=== PATIENT | female | born 1945 | race Caucasian/White ===

== ENCOUNTER 2016-10-06 08:51 | Emergency (ER) | payer OTHER ==
[~2016-10-06] VITALS: Ht 172.7 cm; Wt 89.9 kg
[~2016-10-06 08:51] MED LIST: ASPI-232 PO; BROM0.0911 TOP; CHOL1TAB42 PO; COLE1TAB PO; GATI0.5S OPL; GLC500 PO; LEVO50TA PO; METO25TA3 PO; MULT-506 PO; PRED1SUS3 OPL; XNX25 PO
[2016-10-06 08:55] VITALS: TEMP 37.4; Ht 172.7 cm; Wt 89.9 kg
[2016-10-06] MEDS ORDERED: ONDANSETRON INJ 2 MG/ML 2 ML VIAL IV STA (09:24)
[2016-10-06] MEDS ORDERED: KETOROLAC TROMETHAMINE 30 MG/ML VIAL IV STA (09:24)
[2016-10-06] MEDS ORDERED: SODIUM CHLORIDE 0.9% 1000ML 1,000 ML IV STA (09:24)
--- NOTE | 2016-10-06 09:32 | EMERGENCY ROOM VISIT NOTE ---
History Report prepared by Lito: [place] nAthony Under the Supervision of: Dr. Diaz Nguyen M.D. First contact with patient: 09:01 Chief Complaint: FLU LIKE SX Stated Complaint: FLU SYMPTOMS,BODYACHES,CHILLS History of Present Illness The patient is a 71 year old female who presents to the Emergency Room with complaints of flu-like symptoms that began yesterday. The patient rates her pain a 7/10 in severity. At this time, she suddenly began to feel chills, body aches, and joint pain. This worsened throughout the day. She is now also experiencing a cough, sore throat, and nausea. She denies any abdominal pain. She has a past medical history of a hysterectomy and a cholecystectomy. Source of History: patient Onset: yesterday Position: other (global) Symptom Intensity: 7/10 Quality: other (Flu-like symptoms) Timing: worsening Associated Symptoms: + chills, + cough, + nausea, + sorethroat, No abdominal pain Note: She is feeling joint pain and body aches. Review of Systems See HPI for pertinent positives & negatives. A total of 10 systems reviewed and were otherwise negative. Past Medical & Surgical Medical Problems: (1) Benign hypertension (2) Cholecystectomy (3) Irritable colon (4) Ulcerative colitis Family History Omitted secondary to age. Social History Smoking Status: Never Smoker Smokeless Tobacco Use: No Drug Use: none Marital Status: Housing Status: lives with family Occupation Status: retired Current/Historical Medications Scheduled Aspirin (Aspir-81), 81 MG PO QAM Cholecalciferol (Vitamin D), 5,000 INTUNIT PO QAM Colestipol Hcl (Colestid), 1 GM PO 2-3/day Vikmfnow-Fltnctgvqlim-Qulwqrnd (Artificial Tears), 1 DROP OPB UD Levothyroxine Sodium (Synthroid), 50 MCG PO QAM Metformin HCl (Metformin HCl), 500 MG PO BID Metoprolol Succ (Toprol Xl) (Toprol-Xl), 25 MG PO HS Multivitamin (Multivitamin), 1 TAB PO QAM Scheduled PRN Alprazolam (Alprazolam), 0.25 MG PO TID PRN for Anxiety Allergies Coded Allergies: No Known Allergies (Verified , 10/06/16) Physical Exam Vital Signs Date Time Temp Pulse Resp B/P Pulse Ox O2 Delivery O2 Flow Rate FiO2 10/06/16 11:11 74 16 131/76 94 10/06/16 10:26 75 10/06/16 10:24 75 23 143/76 94 10/06/16 09:50 96 Room Air 10/06/16 08:55 37.4 101 18 138/67 95 Room Air Physical Exam GENERAL: Patient is a healthy-appearing well-nourished HEAD: Normocephalic atraumatic EYES: Ocular movements intact pupils equal and react to light OROPHARYNX mucous membranes are moist no exudates present no erythema or edema present NECK: Supple no nuchal rigidity CHEST: Good equal expansion LUNGS: Clear and equal to auscultation CARDIAC: Normal S1 and S2, 2/6 systolic murmur. ABDOMEN: Soft nontender no guarding BACK: No CVA tenderness EXTREMITIES: No pain upon palpation normal muscle strength in all groups no clubbing cyanosis or edema NEURO: Patient is following commands is answering questions appropriately. Alert and oriented x3 Cranial Nerves 2-12 grossly intact Medical Decision & Procedures ER Provider Diagnostic Interpretation: Radiology results as stated below per my review and radiologist interpretation: CHEST ONE VIEW PORTABLE CLINICAL HISTORY: Cough COMPARISON STUDY: 09/14/2011 FINDINGS: The cardiac and mediastinal contours are normal. There is no evidence of focal pulmonary consolidation. There is no evidence of failure. No pleural effusions are visualized.[ IMPRESSION: No active disease in the chest. Electronically signed by: Jerry Gillesipe M.D. 10/06/2016 9:54 AM Dictated Date/Time: 10/06/2016 9:54 AM Laboratory Results 10/06/16 09:50 Red Blood Count 4.33, Mean Corpuscular Volume 86.8, Mean Corpuscular Hemoglobin 30.9, Mean Corpuscular Hemoglobin Concent 35.6, Mean Platelet Volume 10.7, Neutrophils (%) (Auto) 77.2, Lymphocytes (%) (Auto) 14.0, Monocytes (%) (Auto) 7.9, Eosinophils (%) (Auto) 0.7, Basophils (%) (Auto) 0.2, Neutrophils # (Auto) 3.54, Lymphocytes # (Auto) 0.64, Monocytes # (Auto) 0.36, Eosinophils # (Auto) 0.03, Basophils # (Auto) 0.01 10/06/16 09:50 Test 10/06/16 09:07 10/06/16 09:50 10/06/16 10:15 Influenza Type A (RT-PCR) Neg for Influ A (NEG) Influenza Type A Antigen Neg for Influ A (NEG) Influenza Type B Antigen Neg for Influ B (NEG) Influenza Type B (RT-PCR) Neg for Influ B (NEG) White Blood Count 4.58 K/uL (4.8-10.8) Red Blood Count 4.33 M/uL (4.2-5.4) Hemoglobin 13.4 g/dL (12.0-16.0) Hematocrit 37.6 % (37-47) Mean Corpuscular Volume 86.8 fL (80-100) Mean Corpuscular Hemoglobin 30.9 pg (25-34) Mean Corpuscular Hemoglobin Concent 35.6 g/dl (32-36) Platelet Count 119 K/uL (130-400) Mean Platelet Volume 10.7 fL (7.4-10.4) Neutrophils (%) (Auto) 77.2 % Lymphocytes (%) (Auto) 14.0 % Monocytes (%) (Auto) 7.9 % Eosinophils (%) (Auto) 0.7 % Basophils (%) (Auto) 0.2 % Neutrophils # (Auto) 3.54 K/uL (1.4-6.5) Lymphocytes # (Auto) 0.64 K/uL (1.2-3.4) Monocytes # (Auto) 0.36 K/uL (0.11-0.59) Eosinophils # (Auto) 0.03 K/uL (0-0.5) Basophils # (Auto) 0.01 K/uL (0-0.2) RDW Standard Deviation 42.5 fL (36.4-46.3) RDW Coefficient of Variation 13.2 % (11.5-14.5) Immature Granulocyte % (Auto) 0.0 % Immature Granulocyte # (Auto) 0.00 K/uL (0.00-0.02) Anion Gap 8.0 mmol/L (3-11) Est Creatinine Clear Calc Drug Dose 73.8 ml/min Estimated GFR () 83.4 Estimated GFR (Non- 72.0 BUN/Creatinine Ratio 12.9 (10-20) Calcium Level 8.7 mg/dl (8.5-10.1) Total Bilirubin 1.2 mg/dl (0.2-1) Direct Bilirubin 0.2 mg/dl (0-0.2) Aspartate Amino Transf (AST/SGOT) 17 U/L (15-37) Alanine Aminotransferase (ALT/SGPT) 26 U/L (12-78) Alkaline Phosphatase 88 U/L (45-117) Total Protein 6.8 gm/dl (6.4-8.2) Albumin 3.7 gm/dl (3.4-5.0) Urine Color DK YELLOW Urine Appearance CLEAR (CLEAR) Urine pH 6.5 (4.5-7.5) Urine Specific [place] 1.022 (1.000-1.030) Urine Protein TRACE (NEG) Urine Glucose (UA) NEG (NEG) Urine Ketones TRACE (NEG) Urine Occult Blood NEG (NEG) Urine Nitrite NEG (NEG) Urine Bilirubin NEG (NEG) Urine Urobilinogen NEG (NEG) Urine Leukocyte Esterase SMALL (NEG) Urine WBC (Auto) 1-5 /hpf (0-5) Urine RBC (Auto) 0-4 /hpf (0-4) Urine Hyaline Casts (Auto) 1-5 /lpf (0-5) Urine Epithelial Cells (Auto) >30 /lpf (0-5) Urine Bacteria (Auto) NEG (NEG) Labs reviewed by ED physician. Medications Administered Medications (Trade) Dose Ordered Sig/Seven Route Start Time Stop Time Status Last Admin Dose Admin Sodium Chloride (Nss 1000ml) 1,000 ml @ 999 mls/hr Q1H1M STAT IV 10/06/16 09:24 10/06/16 10:24 DC 10/06/16 10:05 999 MLS/HR Ketorolac Tromethamine (Toradol Inj) 30 mg NOW STAT IV 10/06/16 09:24 10/06/16 09:27 DC 10/06/16 10:05 30 MG Ondansetron HCl (Zofran Inj) 4 mg NOW STAT IV 10/06/16 09:24 10/06/16 09:27 DC 10/06/16 10:05 4 MG Acetaminophen (Tylenol Tab) 1,000 mg NOW STAT PO 10/06/16 10:13 10/06/16 10:14 DC 10/06/16 10:37 1,000 MG Albuterol (Ventolin Hfa Inhaler) 2 puffs NOW STAT INH 10/06/16 10:13 10/06/16 10:14 DC 10/06/16 10:37 2 PUFFS Albuterol Sulfate (Ventolin 0.5% 2.5MG/0.5ML Neb) 2.5 mg NOW STAT INH 10/06/16 10:13 10/06/16 10:14 DC 10/06/16 10:37 2.5 MG ED Course 09: Past medical records reviewed. The patient was evaluated in room B2. A complete history and physical examination was performed. 09: Ordered Zofran Inj 4 mg IV, Toradol Inj 30 mg IV, Sodium Chloride 1000 ml @ 999 mls/hr IV 1013: Ordered Albuterol Sulfate 2.5 mg INH, Albuterol 2 puffs INH, Tylenol Tab 1000 mg PO 1104: Upon reexamination the patient is resting. I discussed results and treatment plan with the patient. She verbalizes agreement and understanding. The patient is ready for discharge. Medical Decision Differential diagnosis: Etiologies such as viral syndrome, otitis, pharyngitis, pneumonia, influenza, meningitis, urinary tract infection, sepsis, bacteremia, as well as others were entertained. This is a 71-year-old female who presents emergency department complaining of general URI like symptoms. The patient was given a breathing treatment in the emergency department. Her chest x-ray does not show any evidence of pneumonia congestion. She was given IV Toradol as well as a normal saline bolus. Repeat examination revealed much improvement patient's symptoms. The patient's flu swab is negative however I feel she is well enough to be discharged home for follow-up with her primary care physician. I recommended increasing her fluids over the next 48 hours as well as taking ibuprofen and Tylenol. Patient was in agreement with the treatment plan. Impression Primary Impression: Influenza-like symptoms Scribe Attestation The scribe's documentation has been prepared under my direction and personally reviewed by me in its entirety. I confirm that the note above accurately reflects all work, treatment, procedures, and medical decision making performed by me. Departure Information Dispostion Home / Self-Care Referrals Danisha Hirsch M.D. (PCP) Forms HOME CARE DOCUMENTATION FORM, IMPORTANT VISIT INFORMATION, School Instructions, Work Instructions Patient Instructions ED Fever Control, ED Fever Unconf Cause, My [facility] Additional Instructions Use inhaler twice every 6 hours Take 600 mg Ibuprofen every 6 hours Take 1000 mg Tylenol every 6 hours Increase fluids You have been examined and treated today on an emergency basis only. This is not a substitute for, or an effort to provide, complete comprehensive medical care. It is impossible to recognize and treat all injuries or illnesses in a single emergency department visit. It is therefore important that you follow up closely with Dr Hirsch. Call as soon as possible for an appointment. Thank you for your time and consideration. I look forward to speaking with you again soon. Please don't hesitate to call us if you have any questions.
[2016-10-06] MEDS ORDERED: GLYCDRO6 OPB (09:33)
[2016-10-06] MEDS ORDERED: XNX25X PO (09:33)
[2016-10-06 09:50] VITALS: O2SAT 96
--- NOTE | 2016-10-06 09:55 | DIAGNOSTIC IMAGING REPORT ---
CHEST ONE VIEW PORTABLE CLINICAL HISTORY: Cough COMPARISON STUDY: 09/14/2011 FINDINGS: The cardiac and mediastinal contours are normal. There is no evidence of focal pulmonary consolidation. There is no evidence of failure. No pleural effusions are visualized.[ IMPRESSION: No active disease in the chest. Electronically signed by: Jerry Gillespie M.D. 10/06/2016 9:54 AM Dictated Date/Time: 10/06/2016 9:54 AM
[2016-10-06 10:12] LABS: BASO % 0.2 %; BASO ABS # 0.01 K/uL (0-0.2); COMPLETE YES; EOS % 0.7 %; HEMATOCRIT 37.6 % (37-47); LYMPH ABS # 0.64 K/uL (1.2-3.4); MEAN CELL VOLUME 86.8 fL (80-100); MEAN CORPUSCULAR HEMOGLOBIN 30.9 pg (25-34); MEAN CORPUSCULAR HGB CONC 35.6 g/dl (32-36); MEAN PLATELET VOLUME 10.7 fL (7.4-10.4); MONO % 7.9 %; NEUT % 77.2 %; PLATELET COUNT 119 K/uL (130-400); RED BLOOD COUNT 4.33 M/uL (4.2-5.4); WHITE BLOOD COUNT 4.58 K/uL (4.8-10.8)
[2016-10-06] MEDS ORDERED: ALBUTEROL HFA 8 GM INHALER INH STA (10:13)
[2016-10-06] MEDS ORDERED: ALBUTEROL 0.5% NEB SOLN 2.5 MG/0.5 ML VIAL INH STA (10:13)
[2016-10-06] MEDS ORDERED: ACETAMINOPHEN 500 MG TAB PO STA (10:13)
[2016-10-06 10:34] LABS: BUN/CREATININE RATIO 12.9 (10-20); CALCIUM 8.7 mg/dl (8.5-10.1); CREATININE 0.82 mg/dl (0.60-1.20); POTASSIUM 3.8 mmol/L (3.5-5.1)
[2016-10-06 10:58] LABS: URINE APPEARANCE CLEAR (CLEAR); URINE BILIRUBIN NEG (NEG); URINE COLOR DK YELLOW; URINE EPITHELIAL CELL AUTO >30 /lpf (0-5); URINE NITRITE NEG (NEG); URINE PH 6.5 (4.5-7.5); URINE SPECIFIC GRAVITY 1.022 (1.000-1.030); UROBILINOGEN NEG (NEG)
[2016-10-06 11:03] LABS: MANUAL MICROSCOPIC REQUIRED? NO; REVIEW REQ? NO
[2016-10-06 11:11] VITALS: BP 131/76; PULSE 74; O2SAT 94
[2016-10-06 12:03] LABS: INFLUENZA A PCR Neg for Influ A (NEG); INFLUENZA B PCR Neg for Influ B (NEG)
== END 2016-10-06 11:14 | disposition home or self-care (01) ==
LOC: C.EDB 08:53
DX: J11.1 Influenza due to unidentified influenza virus with other respiratory manifestations (principal); I10 Essential (primary) hypertension; K58.9 Irritable bowel syndrome, unspecified; Z86.19 Personal history of other infectious and parasitic diseases; Z90.49 Acquired absence of other specified parts of digestive tract; Z79.82 Long term (current) use of aspirin; Z79.84 Long term (current) use of oral hypoglycemic drugs; Z79.899 Other long term (current) drug therapy

== ENCOUNTER → 2017-01-01 | Outpatient (CLI) | payer OTHER ==
[~2017-01-01] MED LIST changes: -BROM0.0911 TOP; -GATI0.5S OPL; +GLYCDRO6 OPB; +OPTIRAY 320 IV PRN; -PRED1SUS3 OPL; -XNX25 PO; +XNX25X PO
--- NOTE | 2017-01-01 11:16 | DIAGNOSTIC IMAGING REPORT ---
CT SCAN OF THE ABDOMEN AND PELVIS COMBO RENAL MASS PROTOCOL CLINICAL HISTORY: Hematuria. COMPARISON STUDY: No priors. TECHNIQUE: Performed following the IV administration of 119 cc of Optiray 320, CT scan of the abdomen and pelvis is performed from the lung bases to the proximal femora using the renal mass protocol. Images are reviewed in the axial, sagittal, and coronal planes. IV contrast was administered without complication. Automated dose control exposure was utilized. A dose lowering technique was utilized adhering to the principles of ALARA. CT DOSE: 1893.14 mGy.cm FINDINGS: Lung bases: The heart is mildly enlarged and without pericardial effusion. There are coronary artery calcifications. Emphysematous change is seen at the lung bases. No airspace consolidation or pleural effusion is identified. There is a tiny hiatal hernia. Liver: The contrast-enhanced liver is enlarged, measuring 20.5 cm in length. The liver demonstrates diffusely diminished attenuation consistent with hepatic steatosis. There is no intrahepatic biliary ductal dilatation. The hepatic veins and portal veins are patent. There are 2 hepatic cysts which measure up to 2.3 cm. Gallbladder: Surgically absent noting clips in the gallbladder fossa. Spleen: The spleen is markedly enlarged, measuring 16.7 cm in length. Pancreas: Unremarkable. Adrenal glands: Unremarkable. Kidneys: The contrast enhanced kidneys demonstrate mild cortical atrophy and are without hydronephrosis. There is a 1.8 cm calculus identified in the right renal pelvis. There is mild associated urothelial thickening. Minimal stranding is seen in the renal sinus fat. No left renal calculi are identified. The kidneys enhance symmetrically. There is a 5.4 x 3.4 x 3.4 cm fat attenuation lesion arising from the medial interpolar left kidney. This is best seen on axial image #227 and is typical in appearance for an angiomyolipoma. There is an additional 1.8 cm lesion in the lower pole of the right kidney seen on image #224 and a 7 mm lesion in the upper pole of the left kidney seen on image #128. These also contain macroscopic fat and are most typical in appearance for angiomyolipomas. There are scattered enhancing soft tissue elements seen within the 1.8 cm right lower lobe lesion. No additional enhancing renal mass is identified. A 1.7 cm cyst is identified in the upper pole of the left kidney. Additional subcentimeter cortical hypodensities also likely represent cysts but are too small for definitive characterization. There is no evidence of urothelial lesion within the renal pelvis bilaterally or along the course of ureters. The mid to distal right ureter is not well opacified by excreted contrast. Abdominal vasculature: The abdominal aorta is normal in course and caliber noting moderate to advanced atherosclerotic calcification. Bowel: The small bowel and colon are normal in course and caliber. There is mild colonic diverticulosis without CT evidence of acute diverticulitis. The appendix is well-visualized and normal. Peritoneum: There is no intraperitoneal free air or abdominal ascites. There is a fat-containing umbilical hernia. Lymphadenopathy: None. Pelvic viscera: There is a 1.5 cm intraluminal filling defects seen within the posterior left wall of the bladder. This is best seen on delayed image #440. The uterus is surgically absent. No adnexal lesion is seen. Skeletal structures: Skeletal structures are osteopenic. Mild lumbosacral spondylosis is observed. No lytic or blastic lesions are seen. IMPRESSION: 1. There is a 1.8 cm calculus identified in the right renal pelvis. There is mild associated urothelial thickening and mild stranding in the surrounding parapelvic fat. This is likely related to inflammation from the large calculus. Superimposed infection would be impossible to exclude and clinical correlation will be required. 2. No additional renal calculi are identified. 3. There is no enhancing renal cortical mass identified typical in appearance for renal cell carcinoma. No evidence of urothelial lesion is seen within the renal pelvis bilaterally or along the course of the ureters. 4. There is a 5.4 cm lesion arising from the medial interpolar right kidney. This is largely composed of macroscopic fat and is typical in appearance for an angiomyolipoma. 5. There are at least 2 additional smaller lesions identified in the left upper and right lower poles which contain macroscopic fat. These are also typical in appearance for age of angiomyolipoma. Scattered soft tissue elements are seen within the right lower pole lesion. Follow-up with urology is recommended, and a precautionary 6-12 month follow-up CT scan is recommended for reassessment. 6. There is a 1.5 cm intraluminal filling defect seen within the posterior left aspect of the bladder. This could represent intraluminal debris/clot versus urothelial neoplasm. Cystoscopy is recommended for further assessment. 7. Hepatomegaly and severe hepatic steatosis. 8. Splenomegaly. 9. Mild colonic diverticulosis without CT evidence of acute diverticulitis. 10. Cardiomegaly and emphysema. 11. Additional findings as above. Electronically signed by: Surinder So M.D. 01/01/2017 11:14 AM Dictated Date/Time: 01/01/2017 10:49 AM
== END | disposition home or self-care (01) ==
LOC: C.CTS 10:01
PROVIDERS: ATTEND Internal Medicine
DX: R31.9 Hematuria, unspecified (principal); I51.7 Cardiomegaly; N20.0 Calculus of kidney

== ENCOUNTER → 2017-09-16 | Outpatient (CLI) | payer OTHER ==
[~2017-09-16] MED LIST changes: -OPTIRAY 320 IV PRN
--- NOTE | 2017-09-16 17:25 | DIAGNOSTIC IMAGING REPORT ---
MRI LUMBAR SPINE W/O CONTRAST CLINICAL HISTORY: Back pain with right leg radiculopathy. TECHNIQUE: Sagittal and axial T1, T2 and STIR images were obtained. COMPARISON STUDY: No previous studies for comparison. OBSERVATIONS: The vertebral bodies and posterior elements appear intact. There is no abnormal bony signal present to suggest a marrow replacement process. L1-2: There is a circumferential disc bulge. There is mild spinal stenosis. There is mild bilateral foraminal narrowing. L2-3: There is a circumferential disc bulge. There is mild spinal stenosis. There is mild right-sided foraminal narrowing. L3-4: There is a minimal disc bulge. There is mild spinal canal narrowing. There is no significant foraminal narrowing. L4-5: There is a grade 1 spondylolisthesis. There is a mild circumferential disc bulge. There is moderate spinal stenosis. There is minor left-sided foraminal narrowing. L5-S1: There is an annular fissure. There is a disc bulge asymmetric to the right. There is no significant spinal stenosis. There is minimal right-sided foraminal narrowing. The conus medullaris and cauda equina appear normal. There is a partially visualized fat-containing mass arising from the right kidney consistent with angiomyolipoma IMPRESSION: 1. Multilevel spondylitic changes. The study is most significant for moderate spinal stenosis at the L4-5 level. There is mild multilevel foraminal narrowing. 2. Incidental right renal angiomyolipoma Electronically signed by: Jerry Gillespie M.D. 09/16/2017 5:24 PM Dictated Date/Time: 09/16/2017 5:19 PM
== END | disposition home or self-care (01) ==
LOC: C.MRIBC 16:45
PROVIDERS: ATTEND Orthopaedic Surgery Orthopaedic Surgery of the Spine
DX: M48.061 Spinal stenosis, lumbar region without neurogenic claudication (principal); D17.5 Benign lipomatous neoplasm of intra-abdominal organs

== ENCOUNTER → 2017-09-19 | Outpatient (CLI) | payer OTHER ==
--- NOTE | 2017-09-19 15:37 | DIAGNOSTIC IMAGING REPORT ---
R VENOUS DOPP LOWER EXT UNILAT HISTORY: 71 years-old Female R HIP AND THIGH PAIN acute right leg pain COMPARISON: None available TECHNIQUE: Multiple real-time sonographic images of the right lower extremity deep venous structures were obtained assessing grayscale appearance, color and spectral flow FINDINGS: Normal flow, compressibility, phasicity and augmentation of the right lower extremity deep venous structures. IMPRESSION: No sonographic evidence of deep venous thrombosis. The above report was generated using voice recognition software. It may contain grammatical, syntax or spelling errors. Electronically signed by: Oumar Vaughn M.D. 09/19/2017 3:35 PM Dictated Date/Time: 09/19/2017 3:34 PM
== END | disposition home or self-care (01) ==
LOC: C.ULTRBC 15:10
PROVIDERS: ATTEND Internal Medicine
DX: M25.551 Pain in right hip (principal)

== ENCOUNTER 2018-08-13 08:43 | Inpatient (IN) ==
[2018-08-13] MEDS ORDERED: KETOROLAC 30 MG/ML VIAL IV STA (09:17)
[2018-08-13] MEDS ORDERED: SODIUM CHLORIDE 0.9% 1000ML 1,000 ML IV SCH (09:30)
[2018-08-13 09:40] LABS: Basophils # (auto) 0.01 K/uL (0-0.2); Basophils % (auto) 0.1 %; Eosinophils # (auto) 0.06 K/uL (0-0.5); Eosinophils % (auto) 0.7 %; Hematocrit (blood only) 39.7 % (37-47); Hemoglobin 13.8 g/dL (12.0-16.0); Immature Granulocytes # (auto) 0.01 K/uL (0.00-0.02); Immature Granulocytes % (auto) 0.1 %; Lymphocytes # (auto) 0.27 K/uL (1.2-3.4); Lymphocytes % (auto) 3.1 %; Mean Corpuscular Hgb Conc 34.8 g/dL (32-36); Mean Corpuscular Volume 83.8 fL (80-100); Mean Platelet Volume 10.4 fL (7.4-10.4); Monocytes # (auto) 0.19 K/uL (0.11-0.59); Monocytes % (auto) 2.2 %; Neutrophils # (auto) 8.15 K/uL (1.4-6.5); Neutrophils % (auto) 93.8 %; Platelet Count 149 K/uL (130-400); RDW Standard Deviation 42.9 fL (36.4-46.3); Red Blood Count 4.74 M/uL (4.2-5.4); White Blood Count 8.69 K/uL (4.8-10.8)
[2018-08-13 09:55] LABS: Albumin Level 3.9 gm/dl (3.4-5.0); BUN Creatinine Ratio 25.3 (10-20); Creatinine Clr Calc Pharmacy 55.2 ml/min; Est GFR (African American) 71.2; Est GFR (Non-African American) 61.4; Potassium 4.4 mmol/L (3.5-5.1)
[2018-08-13 09:58] LABS: Albumin Globulin Ratio 1.2 (0.9-2); Bilirubin,Total 0.8 mg/dl (0.2-1); Globulin 3.3 gm/dl (2.5-4.0); Total Protein 7.2 gm/dl (6.4-8.2)
[2018-08-13] MEDS ORDERED: MoRPHine SULFATE 2 MG/ML CARP IV STA ×2 (11:06→12:17)
[2018-08-13] MEDS ORDERED: ONDANSETRON INJ 2 MG/ML 2 ML VIAL IV STA (11:07)
--- NOTE | 2018-08-13 12:20 | Ultrasound Report ---
US venous doppler LE RT CLINICAL HISTORY: Right leg pain and swelling COMPARISON STUDY: August 2017 FINDINGS: Real-time and color flow Doppler imaging were performed. Flow was seen within the femoral, popliteal and calf veins with no intraluminal thrombus demonstrated. The saphenous vein is patent. IMPRESSION: No evidence of right lower extremity DVT. Electronically signed by: Jerry Gillespie M.D. 08/13/2018 12:19 PM
[2018-08-13 13:48] LABS: Appearance Urine Cloudy (Clear); Bacteria Urine Automated Negative (Negative); Bilirubin Urine Negative (Negative); Blood Urine 3+ (Negative); Color Urine Yellow; Epithelial Cell Urine Auto 0-5 /lpf (0-5); Glucose Urine UA Negative (Negative); Ketones Urine Negative (Negative); Leukocyte Esterase Urine 3+ (Negative); Nitrite Urine Negative (Negative); Protein Urine 1+ (Negative); RBC Urine Automated >30 /hpf (0-4); Specific Gravity Urine 1.021 (1.000-1.030); Urobilinogen Urine Negative (Negative); WBC Urine Automated >30 /hpf (0-5)
[2018-08-13] MEDS ORDERED: IOVERSOL 100ml IV PRN (14:00)
--- NOTE | 2018-08-13 14:21 | CT Scan Report ---
CT abd pelvis IV con only CLINICAL HISTORY: 72 years-old Female presenting with eval for pancreatitis, also pain radiating down rt leg. TECHNIQUE: Multidetector CT of the abdomen and pelvis was performed after the administration of intra venous contrast. IV contrast: 94 mL of Optiray 320. One or more dose lowering techniques were used co nsistent with the principles of ALARA (as low as reasonably achievable), including automatic exposure control, mA or kV adjustment to individual patient size, and/or use of iterative reconstruction. COMPARISON: 01/01/2017. CT DOSE (mGy.cm): The estimated cumulative dose is 375.32 mGy.cm. FINDINGS: Hr Assistant topogram: Cholecystectomy clips. Lung bases: Normal heart size. Coronary artery and aortic valve calcification. No pericardial or pleu ral effusion. Minimal dependent changes likely atelectasis. Minimal emphysematous changes. Liver: Normal morphology. Several well-defined hypodensities unchanged from prior and likely hepatic cysts. No new lesion. Patent hepatic vasculature. Biliary: Mild biliary ductal prominence likely a reservoir effect in the post cholecystectomy state. Gallbladder surgically absent. Pancreas: Mild parenchymal atrophy. Prominence of the pancreatic duct unchanged. Spleen: Enlarged measuring 16.7 cm in maximal sagittal dimension, unchanged from prior. Splenules not ed. Adrenal glands: Normal. Kidneys and ureters: Interval development of moderate right hydronephrosis with persistent dominant 2 .1 cm calculus in the right renal pelvis. Significant urothelial thickening. The right ureter is nond istended beyond the ureteropelvic junction. Hyperdensity is suspected within the right renal collecti ng system. Parenchymal enhancement of the right kidney is preserved. Redemonstration of multiple fat- containing bilateral renal masses compatible with angiomyolipomas as well as few cysts. No left hydro nephrosis or left renal calculi. Bladder: Incompletely evaluated secondary to underdistention. No bladder calculi. Pelvic organs: Uterus surgically absent. Bowel: Diverticulosis of the distal sigmoid colon without wall thickening or pericolonic inflammatory change. The appendix is normal. Feces in the distal small bowel without evidence of bowel obstructio n likely indicates delayed transit or bacterial overgrowth. Dilated segment of more proximal small margaret wel within the diameter of over 3 cm in the left mid abdomen. Mild wall thickening of this segment. N o focal transition point. Peritoneal cavity: No free fluid or intraperitoneal gas. Lymph nodes: No enlarged lymph nodes in the abdomen or pelvis. Vasculature: Significant calcified and noncalcified atherosclerotic plaque throughout the normal hank jaime abdominal aorta resulting in significant luminal irregularity. IVC patent. Abdominal wall: Normal. Musculoskeletal: Degenerative changes of the spine. IMPRESSION: 1. No evidence of pancreatitis. 2. The dominant 2.1 cm right renal calculus may now be obstructing or partially obstructing with sig nificant inflammatory changes in the right renal pelvis and moderate right hydronephrosis new from pr ior. Superimposed infection cannot be excluded. The higher density than expected contents of the righ t renal collecting system raises concern for underlying inspissated material, pyonephrosis, or hemorr miguel a. Urologic consultation recommended. 3. Splenomegaly, unchanged. 4. Additional chronic findings as above. Electronically signed by: Gerald Abbott M.D. 08/13/2018 2:20 PM
[2018-08-13] MEDS ORDERED: cefTRIAXone SODIUM 1,000 MG/50 ML BAG IV STA (14:32)
[2018-08-13] MEDS ORDERED: LORazepam 1 MG/2 ML VIAL IV STA (16:08)
--- NOTE | 2018-08-13 16:09 | Emergency Department Note ---
Entered by Poppy Martin acting as a scribe for History of Present Illness General Chief complaint: Leg Injury/Pain Stated complaint: PAINFUL NERVE IN LEG (RT) Time Seen by Provider: 08/13/18 09:12 Source: patient History of Present Illness Provider complaint: right upper leg pain Onset (ago): day(s) 6 Location: lower extremity (right leg) Radiation: other (right hip) Severity: severe Pain Consistency: + constant Maximum Pain Intensity: 10 Quality: + constant Associated symptoms: + other (lower back pain, diarrhea. Denies: fever, chills, numbness, weakness) The patient is a 72 year old female who presents to the Emergency Room with complaints of constant, severe right upper leg pain beginning 6 days ago. She reports this pain radiates into her right hip. The patient states she was diagnosed with diabetes last year, and has had one episode of pain similar to her current symptoms. She notes some intermittent lower back pain throughout the past week. The patient states she has had diarrhea. She denies fever, chills, numbness, or weakness. The patient notes she fell about 3 months ago, and denies any recent trauma. She denies history of blood clots. Home Medications Home Medications Medication Instructions Recorded Confirmed Type cholecalciferol (vitamin D3) 5,000 unit PO DAILY 08/13/18 08/13/18 History [Vitamin D3] colestipol 2 g PO AMPM 08/13/18 08/13/18 History hydroxyzine pamoate 25 - 50 mg PO DAILY PRN 08/13/18 08/13/18 History metformin 1,000 mg PO BID 08/13/18 08/13/18 History metoprolol succinate 25 mg PO DAILY 08/13/18 08/13/18 History multivitamin 1 tab PO DAILY 08/13/18 08/13/18 History Allergies Allergy/AdvReac Type Severity Reaction Status Date / Time No Known Allergies Allergy Verified 08/13/18 09:26 Past Med/Surg History Medical History HTN (hypertension) Ulcerative colitis Surgical History Hx of cholecystectomy Family History Other Heart disease Social History Preferred Language: Nigerian Feels Safe at Home: Yes Smoking Status: Former smoker Review of Systems See HPI for pertinent positives & negatives. and A total of 10 systems reviewed and were otherwise negative Physical Exam Vital Signs Vital Signs - 24 hr 08/13/18 08:58 08/13/18 10:33 08/13/18 11:00 Temperature 36.5 C Temperature Source Oral Sepsis Recent Fever Within 48 Hours No Sepsis New/Unexplained Change in Mental Status No Sepsis Action Taken by Nursing No Action Required Pulse Rate 118 H 109 H Pulse Rate [Right Finger] 106 H Pulse Rhythm Regular Pulse Rhythm [Right Finger] Regular Pulse Strength [Right Finger] Normal Respiratory Rate 18 20 22 Respiratory Effort / Characteristics Non-Labored Spontaneous Non-Labored Spontaneous Respiratory Depth Normal Normal Respiratory Pattern Regular Blood Pressure 112/62 Blood Pressure [Right Arm] 147/79 H Blood Pressure Mean 78 Blood Pressure Mean [Right Arm] 101 Blood Pressure Position Sitting Blood Pressure Position [Right Arm] Pulse Oximetry 98 100 98 Oxygen Delivery Method Room Air Room Air Room Air 08/13/18 12:00 08/13/18 14:00 Temperature Temperature Source Sepsis Recent Fever Within 48 Hours Sepsis New/Unexplained Change in Mental Status Sepsis Action Taken by Nursing Pulse Rate Pulse Rate [Right Finger] 112 H 92 H Pulse Rhythm Pulse Rhythm [Right Finger] Regular Pulse Strength [Right Finger] Normal Respiratory Rate 20 20 Respiratory Effort / Characteristics Non-Labored Respiratory Depth Normal Respiratory Pattern Regular Blood Pressure Blood Pressure [Right Arm] 128/85 162/85 H Blood Pressure Mean Blood Pressure Mean [Right Arm] 99 110 Blood Pressure Position Blood Pressure Position [Right Arm] Sitting Pulse Oximetry 98 98 Oxygen Delivery Method Room Air Room Air General: Non-ill appearing older female in no acute distress. HEENT: Normal cephalic atraumatic. Pupils are equal round and reactive to light. Extraocular movements are intact. Oropharynx is pink with moist mucous membranes. No swelling of the mouth lips or tongue. Neck: Supple with a midline trachea. No meningeal signs or stiffness, no JVD or bruits. No Stridor. Chest: Clear to auscultation bilaterally. No wheezes or rhonchi. No increased work of breathing. Heart: regular rate and rhythm. Abdomen: Soft nontender, nondistended without rebound guarding or rigidity. Extremities: No cyanosis clubbing or edema. No calf tenderness or assymetry. Right leg has normal pulses and color, normal motor and sensation, no redness or warmth. No pain in the back with straight leg raise. Spine/Back: Non tender to palpation. No CVA tenderness Skin: Good turgor without rashes. Neurologic exam: Cranial nerves two through 12 are intact. Motor and sensation are intact and symmetrical throughout. Course 0913: Past medical records reviewed. The patient was evaluated in room C11B, and a complete history and physical examination were performed. 1055: Upon reevaluation, the patient is having more leg pain and states Toradol did not help. 1320: The patient states her leg pain is improving. She states she had leg pain last night. 1428: I reevaluated the patient and discussed her test results. 1445: Upon reevaluation, the patient is resting. She verbalized agreement with the treatment plan. 1450: Discussed the case with Rachel Lester PA-C, [facility] urology. She recommends medical management 1454: I reviewed the case with Francy Otero PA-C, [facility] Hospitalist. She will evaluate the patient for further management. Consultations Consultation #1: Rachel Lester PA-C, [facility] urology Time: 14:50 Consultation #2: Francy Otero PA-C, [facility] hospitalist Time: 14:54 Administered Medications Ioversol (Optiray 320 100ml) 94 ml IV ONCE PRN PRN Reason: Interaction Checking Stop: 08/17/18 13:59 Last Admin: 08/13/18 14:01 Dose: 94 ml Documented by: [id number] Discontinued Medications Sodium Chloride (Nss 1000ml) 1,000 mls @ 999 mls/hr IV .Q1H1M MAGDALENO Stop: 08/13/18 10:30 Last Infusion: 08/13/18 11:31 Dose: 0 mls/hr Documented by: [id number] Admin: 08/13/18 10:31 Dose: 999 mls/hr Documented by: [id number] Ceftriaxone Sodium (Rocephin) 1,000 mg in 50 mls @ 100 mls/hr IV NOW STA Stop: 08/13/18 15:01 Last Admin: 08/13/18 15:36 Dose: 100 mls/hr Documented by: [id number] Ketorolac Tromethamine (Toradol) 30 mg IV NOW STA Stop: 08/13/18 09:18 Last Admin: 08/13/18 10:31 Dose: 30 mg Documented by: [id number] Morphine Sulfate (Morphine Sulfate) 2 mg IV NOW STA Stop: 08/13/18 11:07 Last Admin: 08/13/18 11:17 Dose: 2 mg Documented by: [id number] Morphine Sulfate (Morphine Sulfate) 2 mg IV NOW STA Stop: 08/13/18 12:18 Last Admin: 08/13/18 12:30 Dose: 2 mg Documented by: [id number] Ondansetron HCl (Zofran) 4 mg IV NOW STA Stop: 08/13/18 11:08 Last Admin: 08/13/18 11:17 Dose: 4 mg Documented by: [id number] Medical Decision Making Differential Diagnosis Etiologies considered include neuropathy, disc disease, diabetes complication, electrolyte or metabolic abnormality, DVT Medical Records Attestation: I reviewed the patient's medical records. Home Medications Current Medication List: was personally reviewed by me Laboratory Data Attestation: I reviewed the patient's lab results. Result diagrams: 08/13/18 09:30 08/13/18 09:30 Lab Results 08/13/18 08/13/18 08/13/18 Range/Units 09:30 09:30 13:30 WBC 8.69 (4.8-10.8) K/uL RBC 4.74 (4.2-5.4) M/uL Hgb 13.8 (12.0-16.0) g/dL Hct 39.7 (37-47) % MCV 83.8 (80-100) fL MCH 29.1 (25-34) pg MCHC 34.8 (32-36) g/dL RDW Std Deviation 42.9 (36.4-46.3) fL RDW Coeff of Vinod 14.0 (11.5-14.5) % Plt Count 149 (130-400) K/uL MPV 10.4 (7.4-10.4) fL Immature Gran % (Auto) 0.1 % Neut % (Auto) 93.8 % Lymph % (Auto) 3.1 % Hardy % (Auto) 2.2 % Eos % (Auto) 0.7 % Baso % (Auto) 0.1 % Immature Gran # (Auto) 0.01 (0.00-0.02) K/uL Neut # (Auto) 8.15 H (1.4-6.5) K/uL Lymph # (Auto) 0.27 L (1.2-3.4) K/uL Hardy # (Auto) 0.19 (0.11-0.59) K/uL Eos # (Auto) 0.06 (0-0.5) K/uL Baso # (Auto) 0.01 (0-0.2) K/uL Sodium 138 (136-145) mmol/L Potassium 4.4 (3.5-5.1) mmol/L Chloride 107 (98-107) mmol/L Carbon Dioxide 24 (21-32) mmol/L Anion Gap 8.0 (3-11) BUN 24 H (7-18) mg/dl Creatinine 0.93 (0.6-1.2) mg/dl Est Cr Clr Drug Dosing 55.2 ml/min Est GFR ( Amer) 71.2 Est GFR (Non-Af Amer) 61.4 BUN/Creatinine Ratio 25.3 H (10-20) Glucose 156 H (70-99) mg/dl Calcium 9.0 (8.5-10.1) mg/dl Total Bilirubin 0.8 (0.2-1) mg/dl AST 12 L (15-37) U/L ALT 17 (12-78) U/L Alkaline Phosphatase 89 (45-117) U/L Total Protein 7.2 (6.4-8.2) gm/dl Albumin 3.9 (3.4-5.0) gm/dl Globulin 3.3 (2.5-4.0) gm/dl Albumin/Globulin Ratio 1.2 (0.9-2) Lipase 826 H (73-393) U/L Urine Color Yellow Urine Appearance Cloudy H (Clear) Urine pH 5.0 (4.5-7.5) Ur Specific [place] 1.021 (1.000-1.030) Urine Protein 1+ H (Negative) Urine Glucose (UA) Negative (Negative) Urine Ketones Negative (Negative) Urine Blood 3+ H (Negative) Urine Nitrite Negative (Negative) Urine Bilirubin Negative (Negative) Urine Urobilinogen Negative (Negative) Ur Leukocyte Esterase 3+ H (Negative) Urine WBC (Auto) >30 H (0-5) /hpf Urine RBC (Auto) >30 H (0-4) /hpf U Hyaline Cast (Auto) 1-5 (0-5) /lpf U Epithel Cells (Auto) 0-5 (0-5) /lpf Urine Bacteria (Auto) Negative (Negative) Imaging Data Radiologist's Impression: Radiology results as stated below per my review and the radiologist's interpretation: CT abd pelvis IV con only CLINICAL HISTORY: 72 years-old Female presenting with eval for pancreatitis, also pain radiating down rt leg. TECHNIQUE: Multidetector CT of the abdomen and pelvis was performed after the administration of intravenous contrast. IV contrast: 94 mL of Optiray 320. One or more dose lowering techniques were used consistent with the principles of ALARA (as low as reasonably achievable), including automatic exposure control, mA or kV adjustment to individual patient size, and/or use of iterative reconstruction. COMPARISON: 01/01/2017. CT DOSE (mGy.cm): The estimated cumulative dose is 375.32 mGy.cm. 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 Lung bases: Normal heart size. Coronary artery and aortic valve calcification. No pericardial or pleural effusion. Minimal dependent changes likely atelectasis. Minimal emphysematous changes. Liver: Normal morphology. Several well-defined hypodensities unchanged from prior and likely hepatic cysts. No new lesion. Patent hepatic vasculature. Biliary: Mild biliary ductal prominence likely a reservoir effect in the post cholecystectomy state. Gallbladder surgically absent. Pancreas: Mild parenchymal atrophy. Prominence of the pancreatic duct unchanged. Spleen: Enlarged measuring 16.7 cm in maximal sagittal dimension, unchanged from prior. Splenules noted. Adrenal glands: Normal. Kidneys and ureters: Interval development of moderate right hydronephrosis with persistent dominant 2.1 cm calculus in the right renal pelvis. Significant urothelial thickening. The right ureter is nondistended beyond the ureteropelvic junction. Hyperdensity is suspected within the right renal collecting system. Parenchymal enhancement of the right kidney is preserved. 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 No left hydronephrosis or left renal calculi. Bladder: Incompletely evaluated secondary to underdistention. No bladder calculi. Pelvic organs: Uterus surgically absent. Bowel: Diverticulosis of the distal sigmoid colon without wall thickening or pericolonic inflammatory change. The appendix is normal. Feces in the distal small bowel without evidence of bowel obstruction likely indicates delayed transit or bacterial overgrowth. Dilated segment of more proximal small bowel within the diameter of over 3 cm in the left mid abdomen. Mild wall thickening o f this segment. No focal transition point. Peritoneal cavity: No free fluid or intraperitoneal gas. Lymph nodes: No enlarged lymph nodes in the abdomen or pelvis. Vasculature: Significant calcified and noncalcified atherosclerotic plaque throughout the normal caliber abdominal aorta resulting in significant luminal irregularity. IVC patent. Abdominal wall: Normal. Musculoskeletal: Degenerative changes of the spine. IMPRESSION: 1. No evidence of pancreatitis. 2. The dominant 2.1 cm right renal calculus may now be obstructing or partially obstructing with significant inflammatory changes in the right renal pelvis and moderate right hydronephrosis new from prior. Superimposed infection cannot be excluded. The higher density than expected contents of the right renal collecting system raises concern for underlying inspissated material, pyonephrosis, or hemorrhage. Urologic consultation recommended. 3. Splenomegaly, unchanged. 4. Additional chronic findings as above. Electronically signed by: Gerald Abbott M.D. 08/13/2018 2:20 PM US venous doppler LE RT CLINICAL HISTORY: Right leg pain and swelling COMPARISON STUDY: August 2017 FINDINGS: Real-time and color flow Doppler imaging were performed. Flow was seen within the femoral, popliteal and calf veins with no intraluminal thrombus demonstrated. The saphenous vein is patent. IMPRESSION: No evidence of right lower extremity DVT. Electronically signed by: Jerry Gillespie M.D. 08/13/2018 12:19 PM Blood Pressure Blood Pressure Findings: Normal blood pressure Blood Pressure Disposition: did not require urgent referral MDM Narrative This patient comes in as described above. She comes in complaining of right leg pain she says is consistent with her neuropathy. She does have diabetes and episode like this in the past. She denies any urinary symptoms or fever or chills. she did have diarrhea last evening also had some abdominal pain last evening. The pain is not made worse with movement. there is no numbness or weakness. On exam, she is neurologically and neurovascularly intact. When I do a straight leg graham,se there is no increase in pain. IV access established and she was hydrated with IV normal saline. She was also given IV Toradol for pain and ultimately IV morphine. She was much more comfortable with this. She has no white count or fever to suggest infection. She has nothing to suggest DKA or any significant electrolyte or metabolic abnormalities with exception of a moderately elevated lipase in the 800 range, in light of this I did do a CAT scan of her abdomen and pelvis. She has no evidence of pancreatitis .she does however have a large 2 cm proximal stone with some possible obstructing changes. It is difficult to exclude infection on top of this. her urine does look potentially infected as well. She looks well and does not look toxic or septic. I did give her Rocephin 1 g IV. Given this CAT scan finding, I did consult the [facility] who is on-call they will see her in the hospital. I also consulted the [facility] hospitalist to see her for admission. She may ultimately need stenting or intervention for the stone given the concern for possible infection as well. She will be admitted/observe for these measures. Impression & Plan Kidney stone, UTI (urinary tract infection), Pain in right leg, Weakness Discharge Plan Visit Data Chief Complaint: Leg Injury/Pain Stated Complaint: PAINFUL NERVE IN LEG (RT) ED Provider: Yovany Booth Discharge Problem: Kidney stone, UTI (urinary tract infection), Pain in right leg, Weakness Patient Disposition: Being Evaluated by Hospitalist Forms Stand Alone Forms: My [facility] Prescriptions Prescriptions: No Action multivitamin Tablet 1 tab PO DAILY RF: 0 metoprolol succinate 25 mg tablet extended release 24 hr 25 mg PO DAILY RF: 0 metformin 500 mg tablet extended release 24 hr 1,000 mg PO BID RF: 0 colestipol 1 gram tablet 2 g PO AMPM RF: 0 cholecalciferol (vitamin D3) [Vitamin D3] 5,000 unit Tablet 5,000 unit PO DAILY RF: 0 hydroxyzine pamoate 25 mg capsule 25 - 50 mg PO DAILY PRN (Reason: Anxiety) RF: 0 Referrals Referrals: Danisha Hirsch MD [Primary Care Provider] - Discharge Problem: UTI (urinary tract infection) Qualifiers: Urinary tract infection type: site unspecified Hematuria presence: without hematuria Qualified Code(s): N39.0 - Urinary tract infection, site not specified The scribe's documentation has been prepared under my direction and personally reviewed by me in its entirety. I confirm that the note above accurately reflects all work, treatment, procedures, and medical decision making performed by me.
[2018-08-13] MEDS ORDERED: LORazepam 2 MG/ML VIAL (IM USE) ONE (16:10)
--- NOTE | 2018-08-13 16:55 | History & Physical Report ---
Date of Service August 13, 2018 Assessment & Plan (1) Pain in right leg: Symptoms likely MSK related and unrelated to findings on CT Ddx: Lumbar spinal stenosis, Nerve impingement, disc bulge, piriformis syndrome, IT band syndrome -admit to med/surg -give IV Methylprednisolone 80mg x 1 now (avoid prolonged steroid given diabetic) -30mg toradol q6hr prn mild pain -2 mg morphine IV q4hr prn pain -consult PT for eval and treat in a.m. -consider consult to physiatry, patient may benefit from pain management vs epidural injection if symptoms not improved with conservative treatment (2) Renal calculus, right: -Patient follows Dr. Katz and has had a chronic right renal pelvis stone noted on CT in 2017, 19 mm. 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 -Patient was scheduled for outpatient cysto, stent placement with lithotripsy 1 year ago; however dx with T2DM and procedure was cancelled. Patient has not followed up since -Urine + leuks, rbc, negative for nitrite and bacturia -CT today reveals enlarging R renal pelvis stone 2.1 cm "The dominant 2.1 cm right renal calculus may now be obstructing or partially obstructing with significant inflammatory changes in the right renal pelvis and moderate right hydronephrosis new from prior. Superimposed infection cannot be excluded. The higher density than expected contents of the right renal collecting system raises concern for underlying inspissated material, pyonephrosis, or hemorrhage. Urologic consultation recommended." -Pt has known R > L angiomyolipomas -I spoke with Dr. Katz who requests patient follow up as outpatient and does not feel any urgent intervention needs taken at this time. She states she will have her office contact patient to set up follow up appt to schedule outpt cysto with stent placement and lithotripsy -I will continue Rocephin 1g daily until urine culture returns (3) Angiomyolipoma of right kidney: -treatment as above (4) Elevated lipase: -patient lipase 826, w/o GI symptoms, CT scan negative for pancreatitis -repeat cmp and lipase in am. -heart healthy, carb controlled diet for now (5) HTN (hypertension): -blood pressure controlled on losartan and metoprolol (6) T2DM (type 2 diabetes mellitus): -A1C 5.5 05/21/18 -hold outpatient metformin -Lantus 0-5 units per protocol/novolog per protocol -A1C in a.m. (7) HLD (hyperlipidemia): -continue fish oil and colestipol (8) Hypothyroidism: -last TSH 3.9 in 2016 -stopped taking thyroid medications -will check tsh in a.m. (9) Anxiety: -continue vistaril prn (10) DVT prophylaxis: -lovenox SQ, SCDS Disposition: D/C to home when able Follow up: PCP Dr. Hirsch upon discharge as well as urgent follow up with Dr. Katz outpatient and she needs scheduled for cystoscopy with stent placement and laser Patient was seen in collaboration with Dr. Montoya please see addendum Starting 08/14/18 patient will be followed by Dr. Crawford History of Present Illness Chief Complaint: RLE Pain x 1 week. Primary Care Provider: Danisha Hirsch MD This is a 72 year old F who has a significant PMH of HTN, HLD, T2DM, Hypothyroidism, Anx, IBS, R Renal pelvis kidney stone, Renal angiomyolipoma, hx of bladder ca s/p TURBT, Ulcerative Colitis who presents to [facility] ED secondary to RLE pain that started 1 week ago. No known injury except back in May she states, "I feel hard on my bottom." Pain is constant, originates R buttock and radiates to above R knee and R lateral thigh. Pain 10/10 on arrival now 3/10 after analgesia. Described as burning pain, "excruciating," made worse with movement, walking. Patient states, "I can hardly walk." Nothing improves symptoms. Tried Ibuprofen w/o relief. Had similar sx in past when she had bursitis but that pain was localized, this is not. Denies alexa back pain. She also elicits to having suprapubic abdominal discomfort last evening and nausea which has since subsided. She denies recent illness, f/c/s, dizziness, lightheaded, chest pain, sob, cough, n/v/d, dysuria, hematuria, increased freq/urgency with urination, melena, hematochezia. Appetite has been stable. Patient does have known right renal pelvis nephrolithiasis that has been present since 2016. At that time was non-obstructing, 19 mm with associated angiomyolipoma bilaterally. Has been followed by Dr. Katz urology. She was further noted to have hematuria that was evaluated and found to be secondary to bladder malignancy that was treated with TURBT. She was supposed to undergo repeat cystoscopy with stent placement secondary to enlargement of stone but this was canceled secondary to preoperative testing revealing T2 DM and was never rescheduled according to patient. Allergies Allergy/AdvReac Type Severity Reaction Status Date / Time No Known Allergies Allergy Verified 08/13/18 09:26 Home Medications Home Medications Medication Instructions Recorded Confirmed Type cholecalciferol (vitamin D3) 5,000 unit PO DAILY 08/13/18 08/13/18 History [Vitamin D3] colestipol 2 g PO AMPM 08/13/18 08/13/18 History fluoxetine [Prozac] 80 mg PO DAILY 08/13/18 08/13/18 History hydroxyzine pamoate 25 - 50 mg PO DAILY PRN 08/13/18 08/13/18 History losartan 25 mg PO DAILY 08/13/18 08/13/18 History metformin 1,000 mg PO BID 08/13/18 08/13/18 History metoprolol succinate 25 mg PO DAILY 08/13/18 08/13/18 History multivitamin 1 tab PO DAILY 08/13/18 08/13/18 History [id number]-fish oil [[place]-3 1 cap PO BID 08/13/18 08/13/18 History Fish Oil] Past Med/Surg History Medical History HLD (hyperlipidemia) (Chronic) Hypertriglyceridemia (Chronic) IBS (irritable bowel syndrome) (Chronic) Anxiety (Chronic) Renal calculus, right (Chronic) Angiomyolipoma of right kidney (Chronic) History of bladder carcinoma (Chronic) T2DM (type 2 diabetes mellitus) (Chronic) Hypothyroidism (Chronic) Ulcerative colitis (Chronic) HTN (hypertension) (Chronic) Surgical History History of esophagogastroduodenoscopy (EGD) (Chronic) History of cataract extraction (Chronic) History of colonoscopy (Chronic) History of cholecystectomy (Chronic) History of transurethral destruction of bladder lesion (Chronic) History of total abdominal hysterectomy and bilateral salpingo-oophorectomy (Chronic) Hx of cholecystectomy (Chronic) Social History Communication Ability: Effective [employer] Work[employer] Required: No Beliefs That Will Affect Care: None marital status: Current Living Situation: Spouse Other Information That Helps Us Care for You: No Feels Safe at Home: Yes Safety Concerns: Feels Safe At This Time Smoking Status: Former smoker Hx Alcohol Use: No Hx Substance Use: No Review of Systems All systems reviewed & are unremarkable except as noted in HPI & below Physical Exam Vital Signs (Past 24 Hours): Last Vital Signs Temp 36.5 C 08/13/18 08:58 Pulse 92 H 08/13/18 14:00 Resp 20 08/13/18 14:00 BP 162/85 H 08/13/18 14:00 Pulse Ox 98 08/13/18 14:00 Physical Exam: Gen: WD/WN, F, appears in pain but resting comfortably, sitting up in bed, pleasant, conversing easily Head: Normocephalic, Atraumatic Eyes: Sclera normal, no conjunctival injection, PERRLA, EOMI ENT: Gross hearing intact, normal pharynx, mucous membranes moist Neck: supple, no adenopathy, No JVD, no bruit, Resp: Clear to auscultation b/l, no wheeze, rales, rhonchi. Normal insp/exp effort, no accessory muscle use CV: Regular rate, regular rhythm, 2/5 6 CASSIDY noted RUSB, no rub, gallop, or ectopy Abd: +BS x 4, soft, nontender, nondistended Musculoskeletal: moves extremities active rom x 4, strength intact, good parcel wrapper strength, + tenderness to palpation along R piriformis. Pt was able to actively and passively move RLE with out discomfort, negative straight leg raise. Extremities: No edema bilaterally Skin: warm, moist, no rash, negative turgor, cap refill < 2sec Neuro: Alert and oriented x 3, speech normal, good mood/affect, cran nerve 2-12 intact grossly : deferred Results & Data Laboratory Results Short CBC 08/13/18 Range/Units 09:30 WBC 8.69 (4.8-10.8) K/uL Hgb 13.8 (12.0-16.0) g/dL Hct 39.7 (37-47) % Plt Count 149 (130-400) K/uL BMP 08/13/18 09:30 Sodium 138 Potassium 4.4 Chloride 107 Carbon Dioxide 24 BUN 24 H Creatinine 0.93 Glucose 156 H Calcium 9.0 Liver Function 08/13/18 Range/Units 09:30 Total Bilirubin 0.8 (0.2-1) mg/dl AST 12 L (15-37) U/L ALT 17 (12-78) U/L Alkaline Phosphatase 89 (45-117) U/L Albumin 3.9 (3.4-5.0) gm/dl Urine 08/13/18 Range/Units 13:30 Urine Color Yellow Urine Appearance Cloudy H (Clear) Urine pH 5.0 (4.5-7.5) Ur Specific [place] 1.021 (1.000-1.030) Urine Protein 1+ H (Negative) Urine Glucose (UA) Negative (Negative) Diagnostic Findings CT abd/pelvis: IMPRESSION: 1. No evidence of pancreatitis. 2. The dominant 2.1 cm right renal calculus may now be obstructing or partially obstructing with significant inflammatory changes in the right renal pelvis and moderate right hydronephrosis new from prior. Superimposed infection cannot be excluded. The higher density than expected contents of the right renal collecting system raises concern for underlying inspissated material, pyonephrosis, or hemorrhage. Urologic consultation recommended. 3. Splenomegaly, unchanged. 4. Additional chronic findings as above. MRI: IMPRESSION: 1. Significantly limited examination secondary to motion related artifacts. This limits diagnostic sensitivity the exam. 2. Multilevel degenerative changes with multilevel moderate spinal canal stenosis. No convincing evidence of cauda equina impingement. Multilevel neural foraminal narrowing, which is more significant and greatest at L2-3 and L3-4. This is further detailed above. 3. Splenomegaly. Correlate clinically. Medications Administered Ioversol (Optiray 320 100ml) 94 ml IV ONCE PRN PRN Reason: Interaction Checking Stop: 08/17/18 13:59 Last Admin: 08/13/18 14:01 Dose: 94 ml Documented by: [id number] Discontinued Medications Sodium Chloride (Nss 1000ml) 1,000 mls @ 999 mls/hr IV .Q1H1M MAGDALENO Stop: 08/13/18 10:30 Last Infusion: 08/13/18 11:31 Dose: 0 mls/hr Documented by: [id number] Admin: 08/13/18 10:31 Dose: 999 mls/hr Documented by: [id number] Ceftriaxone Sodium (Rocephin) 1,000 mg in 50 mls @ 100 mls/hr IV NOW STA Stop: 08/13/18 15:01 Last Infusion: 08/13/18 16:22 Dose: 0 mls/hr Documented by: [id number] Admin: 08/13/18 15:36 Dose: 100 mls/hr Documented by: [id number] Ketorolac Tromethamine (Toradol) 30 mg IV NOW STA Stop: 08/13/18 09:18 Last Admin: 08/13/18 10:31 Dose: 30 mg Documented by: [id number] Lorazepam (Ativan) Confirm Administered Dose 2 mg .ROUTE .STK-MED ONE Stop: 08/13/18 16:11 Last Admin: 08/13/18 16:14 Dose: 1 mg Documented by: [id number] Morphine Sulfate (Morphine Sulfate) 2 mg IV NOW STA Stop: 08/13/18 11:07 Last Admin: 08/13/18 11:17 Dose: 2 mg Documented by: [id number] Morphine Sulfate (Morphine Sulfate) 2 mg IV NOW STA Stop: 08/13/18 12:18 Last Admin: 08/13/18 12:30 Dose: 2 mg Documented by: [id number] Ondansetron HCl (Zofran) 4 mg IV NOW STA Stop: 08/13/18 11:08 Last Admin: 08/13/18 11:17 Dose: 4 mg Documented by: [id number] Code Status & VTE Plan Code Status Full Code VTE Prophylaxis Plan VTE Prophylaxis will be ordered: Yes Supervising Physician Co-Signing Physician Notes Care coordinated with Francy Otero PA-C. Agree with above note. Patient seen and examined. Please refer to her notes for full details. Vital signs reviewed. Physical exam: General exam: Alert and oriented. Not in acute distress. CVS: S1 and S2 heard, regular rate and rhythm, no murmurs. RS: Clear to auscultation, no wheezing or crackles. ABD: Soft, bowel sounds present, nontender, no distention. ROLLWAY MAN: Nonfocal. Musculoskeletal SLR test negative EXT: No edema, no erythema. Labs: Reviewed. Assessment and plan:72F presents with right lower extremity pain since about a week. Pain radiated down from the back to the lower extremity. Was given gabapentin for possible diabetic neuropathy but not helping her. denies fe parag/chills. Normal bowel and bladder movements. Right lower extremity pain MRI shows degenerative disc disease received a dose of iv steroid pain control pt/ot if no improvement will consider ortho consult. Right Kidney stone 2.1cm uti? follow cx on iv abx rocephin Stone is there for sometime Urology advised to followup as out patinet Hx of Bladder tumor Right kidney angiomyolipoma followup with urology Other diagnosis and plan of care as per []. Grant walsh MD. (1) T2DM (type 2 diabetes mellitus) Diabetes mellitus complication status: without complication Diabetes mellitus meterman insulin use: without meterman use Qualified Code(s): E11.9 - Type 2 diabetes mellitus without complications (2) HLD (hyperlipidemia) Hyperlipidemia type: mixed hyperlipidemia Qualified Code(s): E78.2 - Mixed hyperlipidemia (3) Hypothyroidism Hypothyroidism type: unspecified Qualified Code(s): E03.9 - Hypothyroidism, unspecified (4) HTN (hypertension) Hypertension type: essential hypertension Qualified Code(s): I10 - Essential (primary) hypertension
--- NOTE | 2018-08-13 17:20 | Magnetic Resonance Report ---
MR lumbar spine wo con CLINICAL HISTORY: 72 years-old Female presenting with RLE radicular symptoms, pain in the right thigh and right hip radiating to the mid lower back. TECHNIQUE: Multisequence, multiplanar MR imaging of the lumbar spine was performed without the use of intravenous contrast. IV contrast: None. COMPARISON: 09/16/2017. FINDINGS: Localizer images: Enlargement of the spleen, which measures 16.6 cm in maximal sagittal dimension. Images significantly degraded by motion artifacts. This limits diagnostic sensitivity the exam. Normal lumbar lordosis. Vertebral bodies demonstrate benign hemangiomas in L4 and potentially L3. Lukas tebral bodies maintain normal height and alignment. Diffuse intervertebral disc desiccation with mild to moderate height loss at L1-2 and a lesser degree of height loss at L2-3. Additional multilevel de generative changes further detailed below: L1-2: Disc bulge results in moderate effacement of the ventral thecal sac. Ligamentum flavum thickeni ng and facet arthropathy further effaces the posterior lateral thecal sac to a mild degree. Residual CSF signal is evident. Moderate bilateral neural foraminal narrowing. L2-3: Disc bulge, ligamentum flavum thickening, and facet arthropathy circumferentially efface the th ecal sac to a similar degree as on prior exam. CSF signal is preserved. Severe right and mild to mode rate left neural foraminal narrowing. L3-4: Trace disc bulge. More significant facet arthropathy and ligamentum flavum thickening result in and moderate posterior effacement of the thecal sac. Moderate to severe right and moderate left neur al foraminal narrowing. L4-5: Mild disc bulge, facet arthropathy, ligamentum flavum thickening result in moderate circumferen tial effacement of the thecal sac. CSF signal is preserved. Moderate bilateral neural foraminal narro wing. L5-S1: Annular fissure suspected on the left. Mild disc bulge and facet arthropathy. Mild effacement of the ventral thecal sac. Moderate bilateral neural foraminal narrowing, right greater than left. Spinal cord terminates in good position at the inferior endplate of L1. Cauda equina grossly normal m orphology without gross evidence of buckling. No paraspinal muscle edema. T2 flow voids within the va sculature grossly preserved. Remaining visualized soft tissues poorly assessed. IMPRESSION: 1. Significantly limited examination secondary to motion related artifacts. This limits diagnostic s ensitivity the exam. 2. Multilevel degenerative changes with multilevel moderate spinal canal stenosis. No convincing bryan dence of cauda equina impingement. Multilevel neural foraminal narrowing, which is more significant a nd greatest at L2-3 and L3-4. This is further detailed above. 3. Splenomegaly. Correlate clinically. Electronically signed by: Gerald Abbott M.D. 08/13/2018 5:19 PM
[2018-08-13] MEDS ORDERED: POLYETHYLENE (MIRALAX) 17 GM PACK PO PRN (17:37)
[2018-08-13] MEDS ORDERED: KETOROLAC TROMETHAMINE 15 MG/ML VIAL IV PRN (17:37)
[2018-08-13] MEDS ORDERED: DEXTROSE 50% 50 ML SYRINGE IV PRN (17:37)
[2018-08-13] MEDS ORDERED: ONDANSETRON INJ 2 MG/ML 2 ML VIAL IV PRN (17:37)
[2018-08-13] MEDS ORDERED: ALUMINUM/MAGNESIUM SUSP 30 ML UDC PO PRN (17:37)
[2018-08-13] MEDS ORDERED: GLUCOSE 40% GEL 15 GM TUBE PO PRN (17:37)
[2018-08-13] MEDS ORDERED: GLUCOSE 10 TABS/TUBE PO PRN (17:37)
[2018-08-13] MEDS ORDERED: MAGNESIUM HYDROXIDE SUSP 30 ML UDC PO PRN (17:37)
[2018-08-13] MEDS ORDERED: GLUCAGON FOR INJ 1 MG VIAL SQ PRN (17:37)
[2018-08-13] MEDS ORDERED: methylPREDNISolone 80 MG in SYRINGE 0 ML IV ONE (17:37)
[2018-08-13] MEDS ORDERED: MoRPHine SULFATE 2 MG/ML CARP IV PRN (17:37)
[2018-08-13] MEDS ORDERED: CARBOHYDRATES FOR HYPOGLYCEMIA PO PRN (17:37)
[2018-08-13] MEDS: INSULIN ASPART 100 UNITS/ML 3 ML PEN SC SCH ×2 (19:14→21:27)
[2018-08-13] MEDS: OMEGA-3 (PURIFIED FISH OIL) 1 GM CAP PO SCH (21:19)
[2018-08-13] MEDS: COLESTIPOL HCL 1 GM TAB PO SCH (21:20)
[2018-08-13] MEDS: INSULIN GLARGINE SOLOSTAR 100 UNITS/ML 3 ML PEN SC SCH (21:26)
[2018-08-13] MEDS ORDERED: LOSARTAN POTASSIUM 25 MG TAB PO STA (22:04)
[2018-08-13] MEDS: LOSARTAN POTASSIUM 25 MG TAB PO SCH (22:09)
[2018-08-13] MEDS: METOPROLOL SUCC 25MG EXT REL TAB PO SCH (22:32)
[2018-08-13] MEDS: ACETAMINOPHEN 325 MG TAB PO PRN (23:29)
[2018-08-14 05:47] LABS: Hematocrit (blood only) 34.6 % (37-47); Hemoglobin 12.4 g/dL (12.0-16.0); Mean Corpuscular Hgb Conc 35.8 g/dL (32-36); Mean Corpuscular Volume 81.8 fL (80-100); Platelet Count 123 K/uL (130-400); RDW Coefficient of Variation 13.7 % (11.5-14.5); RDW Standard Deviation 41.6 fL (36.4-46.3); Red Blood Count 4.23 M/uL (4.2-5.4); White Blood Count 5.19 K/uL (4.8-10.8)
[2018-08-14 05:57] LABS: INR 1.1 (0.9-1.1); Partial Thromboplastin Time 26.3 Seconds (21.0-31.0); Prothrombin Time 10.9 Seconds (9.0-12.0)
[2018-08-14 06:22] LABS: Albumin Level 3.3 gm/dl (3.4-5.0); BUN Creatinine Ratio 24.2 (10-20); Calcium 8.5 mg/dl (8.5-10.1); Creatinine Clr Calc Pharmacy 69.3 ml/min; Est GFR (African American) 93.8; Est GFR (Non-African American) 80.9; Potassium 3.9 mmol/L (3.5-5.1)
[2018-08-14 06:25] LABS: Bilirubin,Total 0.6 mg/dl (0.2-1); Globulin 3.3 gm/dl (2.5-4.0); Total Protein 6.6 gm/dl (6.4-8.2)
[2018-08-14 06:38] LABS: Estimated Average Glucose 111 mg/dl; Hemoglobin A1C 5.5 % (4.5-5.6)
[2018-08-14] MEDS: ACETAMINOPHEN 325 MG TAB PO PRN ×2 (08:22→13:17)
[2018-08-14] MEDS ORDERED: MULTIVITAMIN TAB PO SCH (09:00)
[2018-08-14] MEDS ORDERED: CHOLECALCIFEROL 1,000 UNITS TAB PO SCH (09:00)
[2018-08-14] MEDS ORDERED: cefTRIAXone SODIUM 1,000 MG in DEXTROSE 5% 50 ML IV SCH (09:00)
[2018-08-14] MEDS ORDERED: METOPROLOL SUCC 25MG EXT REL TAB PO SCH (09:00)
[2018-08-14] MEDS ORDERED: ENOXAPARIN INJ 40 MG/0.4 ML SYR SQ SCH (09:00)
[2018-08-14] MEDS ORDERED: FLUOXETINE HCL 20 MG CAP PO SCH (09:00)
[2018-08-14] MEDS: METOPROLOL SUCC 25MG EXT REL TAB PO SCH (09:07)
[2018-08-14] MEDS: OMEGA-3 (PURIFIED FISH OIL) 1 GM CAP PO SCH (09:07)
[2018-08-14] MEDS: INSULIN GLARGINE SOLOSTAR 100 UNITS/ML 3 ML PEN SC SCH (09:08)
[2018-08-14] MEDS: INSULIN ASPART 100 UNITS/ML 3 ML PEN SC SCH ×3 (09:10→17:51)
[2018-08-14] MEDS: LOSARTAN POTASSIUM 25 MG TAB PO SCH (09:11)
[2018-08-14] MEDS: COLESTIPOL HCL 1 GM TAB PO SCH (10:00)
[2018-08-14] MEDS ORDERED: TRAMADOL HCL 50 MG TABLET PO STA (15:19)
--- NOTE | 2018-08-14 17:10 | Hospitalist Progress Note ---
Date of Service August 14, 2018 Assessment & Plan (1) Pain in right leg: Symptoms likely MSK related Doppler of LE showed no evidence of DVT MRI lumbar showed multilevel degenerative changes with multilevel moderate spinal canal stenosis. No convincing evidence of cauda equina impingement. Continue pain control Continue PT/OT Physical therapy recommended outpatient PT Morphine changed to tramadol Clinically improved (2) Abnormal urinalysis: UA positive for leukocytes Denies any urinary symptoms urine x growth multiples organisms (Contamination) was starting on Rocephin Will d/c abx (3) Renal calculus, right: Patient follows Dr. Katz and has had a chronic right renal pelvis stone noted on CT in 2017, 19 mm. 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 Patient was scheduled for outpatient cysto, stent placement with lithotripsy 1 year ago; however dx with T2DM and procedure was cancelled. Patient has not followed up since CT today reveals enlarging R renal pelvis stone 2.1 cm "The dominant 2.1 cm right renal calculus may now be obstructing or partially obstructing with significant inflammatory changes in the right renal pelvis and moderate right hydronephrosis new from prior. Superimposed infection cannot be excluded. The higher density than expected contents of the right renal collecting system raises concern for underlying inspissated material, pyonephrosis, or hemorrhage. Urologic consultation recommended." Pt has known R > L angiomyolipomas Admitted team discussed case with Dr. Katz who requested patient to follow as outpatient and does not feel any urgent intervention needs taken at this time. Urology office will contact patient to set up follow up appt to schedule outpt cysto with stent placement and lithotripsy Received Rocephin 1 g (4) Angiomyolipoma of right kidney: Follow up with urology (5) Elevated lipase: Lipase [address] abd negative for pancreatitis Lipase normal this morning Denies any GI symptoms (6) HTN (hypertension): blood pressure controlled Continue losartan and metoprolol (7) T2DM (type 2 diabetes mellitus): Controlled A1C 5.5 08/14/17 Will hold metformin since pt received contrast Continue insulin sliding scale . (8) HLD (hyperlipidemia): continue fish oil and colestipol (9) Hypothyroidism: TSH stable (10) Anxiety: continue vistaril prn (11) DVT prophylaxis: lovenox SQ, SCDS Disposition: Discharge home today Subjective Pt was seen and examined Lying in bed with no distress Pt said that her pain is much better Denies any urinary symptoms Denies any chest pain, palpitation, dizziness and SOB Physical Exam Vital Signs (Past 24 Hours): Last Vital Signs Temp 36.6 C 08/14/18 15:03 Pulse 70 08/14/18 15:03 Resp 16 08/14/18 15:03 BP 131/75 08/14/18 15:03 Pulse Ox 94 08/14/18 15:03 Physical Exam: General- No acute distress Head- atraumatic Eyes- PERRL, EOMI, ENT- oropharynx clear Neck- supple, no JVD Lungs- clear to auscultation Heart- regular rhythm; no murmur Abdomen- normal bowel sounds, soft, nontender Extremities- no calf tenderness Neuro- alert, oriented x 3; PERRL, EOMI; no facial palsy; no dysarthria Skin- warm & dry (1) T2DM (type 2 diabetes mellitus) Diabetes mellitus complication status: without complication Diabetes mellitus alf insulin use: without terminal operations manager use Qualified Code(s): E11.9 - Type 2 diabetes mellitus without complications (2) HLD (hyperlipidemia) Hyperlipidemia type: mixed hyperlipidemia Qualified Code(s): E78.2 - Mixed hyperlipidemia (3) Hypothyroidism Hypothyroidism type: unspecified Qualified Code(s): E03.9 - Hypothyroidism, unspecified (4) HTN (hypertension) Hypertension type: essential hypertension Qualified Code(s): I10 - Essential (primary) hypertension
--- NOTE | 2018-08-17 07:15 | Discharge Summary ---
Date of Service August 19, 2018 Admission HPI Per Admitting Provider This is a 72 year old F who has a significant PMH of HTN, HLD, T2DM, Hypothyroidism, Anx, IBS, R Renal pelvis kidney stone, Renal angiomyolipoma, hx of bladder ca s/p TURBT, Ulcerative Colitis who presents to [facility] ED secondary to RLE pain that started 1 week ago. No known injury except back in May she states, "I feel hard on my bottom." Pain is constant, originates R buttock and radiates to above R knee and R lateral thigh. Pain 10/10 on arrival now 3/10 after analgesia. Described as burning pain, "excruciating," made worse with movement, walking. Patient states, "I can hardly walk." Nothing improves s ymptoms. Tried Ibuprofen w/o relief. Had similar sx in past when she had bursitis but that pain was localized, this is not. Denies alexa back pain. She also elicits to having suprapubic abdominal discomfort last evening and nausea which has since subsided. She denies recent illness, f/c/s, dizziness, lightheaded, chest pain, sob, cough, n/v/d, dysuria, hematuria, increased freq/urgency with urination, melena, hematochezia. Appetite has been stable. Patient does have known right renal pelvis nephrolithiasis that has been present since 2017. At that time was non-obstructing, 19 mm with associated angiomyolipoma bilaterally. Has been followed by Dr. Katz urology. She was further noted to have hematuria that was evaluated and found to be secondary to bladder malignancy that was treated with TURBT. She was supposed to undergo repeat cystoscopy with stent placement secondary to enlargement of stone but this was canceled secondary to preoperative testing revealing T2 DM and was ne parag rescheduled according to patient. Discharge Data Consultations 08/13/18 14:52 ED Decision to Admit Stat
--- NOTE | 2018-08-17 09:15 | Discharge Summary ---
Date of Service August 14, 2018 Admission HPI Per Admitting Provider This is a 72 year old F who has a significant PMH of HTN, HLD, T2DM, Hypothyroidism, Anx, IBS, R Renal pelvis kidney stone, Renal angiomyolipoma, hx of bladder ca s/p TURBT, Ulcerative Colitis who presents to [facility] [place] [facility] secondary to RLE pain that started 1 week ago. No known injury except back in May she states, "I feel hard on my bottom." Pain is constant, originates R buttock and radiates to above R knee and R lateral thigh. Pain 10/10 on arrival now 3/10 after analgesia. Described as burning pain, "excruciating," made worse with movement, walking. Patient states, "I can hardly walk." Nothing improves s ymptoms. Tried Ibuprofen w/o relief. Had similar sx in past when she had bursitis but that pain was localized, this is not. Denies alexa back pain. She also elicits to having suprapubic abdominal discomfort last evening and nausea which has since subsided. She denies recent illness, f/c/s, dizziness, lightheaded, chest pain, sob, cough, n/v/d, dysuria, hematuria, increased freq/urgency with urination, melena, hematochezia. Appetite has been stable. Patient does have known right renal pelvis nephrolithiasis that has been present since 2017. At that time was non-obstructing, 19 mm with associated angiomyolipoma bilaterally. Has been followed by Dr. Katz urology. She was further noted to have hematuria that was evaluated and found to be secondary to bladder malignancy that was treated with TURBT. She was supposed to undergo repeat cystoscopy with stent placement secondary to enlargement of stone but this was canceled secondary to preoperative testing revealing T2 DM and was ne parag rescheduled according to patient. Admission Exam Per Admitting Provider Gen: WD/WN, F, appears in pain but resting comfortably, sitting up in bed, pleasant, conversing easily Head: Normocephalic, Atraumatic Eyes: Sclera normal, no conjunctival injection, PERRLA, EOMI ENT: Gross hearing intact, normal pharynx, mucous membranes moist Neck: supple, no adenopathy, No JVD, no bruit, Resp: Clear to auscultation b/l, no wheeze, rales, rhonchi. Normal insp/exp effort, no accessory muscle use CV: Regular rate, regular rhythm, 2/5 6 CASSIDY noted RUSB, no rub, gallop, or ectopy Abd: +BS x 4, soft, nontender, nondistended Musculoskeletal: moves extremities active rom x 4, strength intact, good part maker strength, + tenderness to palpation along R piriformis. Pt was able to actively and passively move RLE with out discomfort, negative straight leg raise. Extremities: No edema bilaterally Skin: warm, moist, no rash, negative turgor, cap refill < 2sec Neuro: Alert and oriented x 3, speech normal, good mood/affect, cran nerve 2-12 intact grossly : deferred Principal Diagnosis Abnormal urinalysis Renal calculus, right Right Lower extremity pain Discharge Exam General- No acute distress Head- atraumatic Eyes- PERRL, EOMI, ENT- oropharynx clear Neck- supple, no JVD Lungs- clear to auscultation Heart- regular rhythm; no murmur Abdomen- normal bowel sounds, soft, nontender Extremities- no calf tenderness Neuro- alert, oriented x 3; PERRL, EOMI; no facial palsy; no dysarthria Skin- warm & dry Discharge Data Allergies Allergy/AdvReac Type Severity Reaction Status Date / Time No Known Allergies Allergy Verified 08/16/18 15:31 Consultations 08/13/18 14:52 ED Decision to Admit Stat Ordered Studies 08/13/18 09:17 US venous doppler LE RT Stat 08/13/18 13:21 CT abd pelvis IV con only Stat 08/13/18 15:59 MR lumbar spine wo con Routine MR lumbar spine wo con CLINICAL HISTORY: 72 years-old Female presenting with RLE radicular symptoms, pain in the right thigh and right hip radiating to the mid lower back. TECHNIQUE: Multisequence, multiplanar MR imaging of the lumbar spine was performed without the use of intravenous contrast. IV contrast: None. COMPARISON: 09/16/2017. FINDINGS: Localizer images: Enlargement of the spleen, which measures 16.6 cm in maximal sagittal dimension. Images significantly degraded by motion artifacts. This limits diagnostic sensitivity the exam. Normal lumbar lordosis. Vertebral bodies demonstrate benign hemangiomas in L4 and potentially L3. Vertebral bodies maintain normal height and alignment. Diffuse intervertebral disc desiccation with mild to moderate height loss at L1- 2 and a lesser degree of height loss at L2-3. Additional multilevel degenerative changes further detailed below: L1-2: Disc bulge results in moderate effacement of the ventral thecal sac. Ligamentum flavum thickening and facet arthropathy further effaces the posterior lateral thecal sac to a mild degree. Residual CSF signal is evident. Moderate bilateral neural foraminal narrowing. L2-3: Disc bulge, ligamentum flavum thickening, and facet arthropathy circumferentially efface the thecal sac to a similar degree as on prior exam. CSF signal is preserved. Severe right and mild to moderate left neural foraminal narrowing. L3-4: Trace disc bulge. More significant facet arthropathy and ligamentum flavum thickening result in and moderate posterior effacement of the thecal sac. Moderate to severe right and moderate left neural foraminal narrowing. L4-5: Mild disc bulge, facet arthropathy, ligamentum flavum thickening result in moderate circumferential effacement of the thecal sac. CSF signal is preserved. Moderate bilateral neural foraminal narrowing. L5-S1: Annular fissure suspected on the left. Mild disc bulge and facet arthropathy. Mild effacement of the ventral thecal sac. Moderate bilateral neural foraminal narrowing, right greater than left. Spinal cord terminates in good position at the inferior endplate of L1. Cauda equina grossly normal morphology without gross evidence of buckling. No paraspinal muscle edema. T2 flow voids within the vasculature grossly preserved. Remaining visualized soft tissues poorly assessed. IMPRESSION: 1. Significantly limited examination secondary to motion related artifacts. This limits diagnostic sensitivity the exam. 2. Multilevel degenerative changes with multilevel moderate spinal canal stenosis. No convincing evidence of cauda equina impingement. Multilevel neural foraminal narrowing, which is more significant and greatest at L2-3 and L3-4. This is further detailed above. 3. Splenomegaly. Correlate clinically. Electronically signed by: Gerald Abbott M.D. 08/13/2018 5:19 PM Dictated: 08/13/181710 Transcribed: 08/13/181710 CT abd pelvis IV con only CLINICAL HISTORY: 72 years-old Female presenting with eval for pancreatitis, also pain radiating down rt leg. TECHNIQUE: Multidetector CT of the abdomen and pelvis was performed after the administration of intravenous contrast. IV contrast: 94 mL of Optiray 320. One or more dose lowering techniques were used consistent with the principles of ALARA (as low as reasonably achievable), including automatic exposure control, mA or kV adjustment to individual patient size, and/or use of iterative reconstruction. COMPARISON: 01/01/2017. CT DOSE (mGy.cm): The estimated cumulative dose is 375.32 mGy.cm. FINDINGS: Double Needle Stitcher topogram: Cholecystectomy clips. Lung bases: Normal heart size. Coronary artery and aortic valve calcification. No pericardial or pleural effusion. Minimal dependent changes likely atelectasis. Minimal emphysematous changes. Liver: Normal morphology. Several well-defined hypodensities unchanged from prior and likely hepatic cysts. No new lesion. Patent hepatic vasculature. Biliary: Mild biliary ductal prominence likely a reservoir effect in the post cholecystectomy state. Gallbladder surgically absent. Pancreas: Mild parenchymal atrophy. Prominence of the pancreatic duct unchanged. Spleen: Enlarged measuring 16.7 cm in maximal sagittal dimension, unchanged from prior. Splenules noted. Adrenal glands: Normal. Kidneys and ureters: Interval development of moderate right hydronephrosis with persistent dominant 2.1 cm calculus in the right renal pelvis. Significant urothelial thickening. The right ureter is nondistended beyond the ureteropelvic junction. Hyperdensity is suspected within the right renal collecting system. Parenchymal enhancement of the right kidney is preserved. 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 No left hydronephrosis or left renal calculi. Bladder: Incompletely evaluated secondary to underdistention. No bladder calculi. Pelvic organs: Uterus surgically absent. Bowel: Diverticulosis of the distal sigmoid colon without wall thickening or pericolonic inflammatory change. The appendix is normal. Feces in the distal small bowel without evidence of bowel obstruction likely indicates delayed tra nsit or bacterial overgrowth. Dilated segment of more proximal small bowel within the diameter of over 3 cm in the left mid abdomen. Mild wall thickening of this segment. No focal transition point. Peritoneal cavity: No free fluid or intraperitoneal gas. Lymph nodes: No enlarged lymph nodes in the abdomen or pelvis. Vasculature: Significant calcified and noncalcified atherosclerotic plaque thro ughout the normal caliber abdominal aorta resulting in significant luminal irregularity. IVC patent. Abdominal wall: Normal. Musculoskeletal: Degenerative changes of the spine. IMPRESSION: 1. No evidence of pancreatitis. 2. The dominant 2.1 cm right renal calculus may now be obstructing or partially obstructing with significant inflammatory changes in the right renal pelvis and moderate right hydronephrosis new from prior. Superimposed infection cannot be excluded. The higher density than expected contents of the right renal collecting system raises concern for underlying inspissated material, pyonephrosis, or hemorrhage. Urologic consultation recommended. 3. Splenomegaly, unchanged. 4. Additional chronic findings as above. Electronically signed by: Gerald Abbott M.D. 08/13/2018 2:20 PM Dictated: 08/13/18 1405 Transcribed: 08/13/18 1405 US venous doppler LE RT CLINICAL HISTORY: Right leg pain and swelling COMPARISON STUDY: August 2017 FINDINGS: Real-time and color flow Doppler imaging were performed. Flow was seen within the femoral, popliteal and calf veins with no intraluminal thrombus demonstrated. The saphenous vein is patent. IMPRESSION: No evidence of right lower extremity DVT. Electronically signed by: Jerry Gillespie M.D. 08/13/2018 12:19 PM Dictated: 08/13/18 1218 Transcribed: 08/13/18 1218 Hospital Course (1) Pain in right leg: Symptoms likely MSK related Doppler of LE showed no evidence of DVT MRI lumbar showed multilevel degenerative changes with multilevel moderate spinal canal stenosis. No convincing evidence of cauda equina impingement. Continue pain control Continue PT/OT Physical therapy recommended outpatient PT Morphine changed to tramadol Clinically improved (2) Abnormal urinalysis: UA positive for leukocytes Denies any urinary symptoms urine x growth multiples organisms (Contamination) was starting on Rocephin Will d/c abx (3) Renal calculus, right: Patient follows Dr. Katz and has had a chronic right renal pelvis stone noted on CT in 2017, 19 mm. 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 Patient was scheduled for outpatient cysto, stent placement with lithotripsy 1 year ago; however dx with T2DM and procedure was cancelled. Patient has not followed up since CT today reveals enlarging R renal pelvis stone 2.1 cm "The dominant 2.1 cm right renal calculus may now be obstructing or partially obstructing with significant inflammatory changes in the right renal pelvis and moderate right hydronephrosis new from prior. Superimposed infection cannot be excluded. The higher density than expected contents of the right renal collecting system raises concern for underlying inspissated material, pyonephrosis, or hemorrhage. Urologic consultation recommended." Pt has known R > L angiomyolipomas Admitted team discussed case with Dr. Katz who requested patient to follow as outpatient and does not feel any urgent intervention needs taken at this time. Urology office will contact patient to set up follow up appt to schedule outpt cysto with stent placement and lithotripsy Received Rocephin 1 g (4) Angiomyolipoma of right kidney: Follow up with urology (5) Elevated lipase: Lipase [address] abd negative for pancreatitis Lipase normal this morning Denies any GI symptoms (6) HTN (hypertension): blood pressure controlled Continue losartan and metoprolol (7) T2DM (type 2 diabetes mellitus): Controlled A1C 5.5 08/14/17 Will hold metformin since pt received contrast Continue insulin sliding scale . (8) HLD (hyperlipidemia): continue fish oil and colestipol (9) Hypothyroidism: TSH stable (10) Anxiety: continue vistaril prn (11) DVT prophylaxis: lovenox SQ, SCDS Disposition: Discharge home today Total Time Total Time Spent Total Time Spent (In Minutes): 35 minutes Total Time Includes: Examination of the Patient, Discharge Planning, Medication Reconciliation, Communication With Other Providers and Other Discharge Plan Discharge Items Patient Disposition: Home - Self-Care Reason For Visit: RT LE RADICULOPATHY Discharge Diagnosis: Abnormal urinalysis Renal calculus, right Right Lower extremity pain Discharge Goals: Decrease discomfort, Improve disease control, Improve function and Increase independence Activity: Resume your previous activity Activity Comment: as tolerated Non-emergency contact: Primary Care Provider Call non-emergency contact if: you have any medication questions and your temperature is above 101 Follow-up/Referrals: Danisha Hirsch MD [Primary Care Provider] - Diet: Carb Consistent or DM2 Addtl Provider Instructions: Follow up with your primary care Dr. Hirsch within 1 week Follow up with urology Dr. Katz (Office will contact you. If you don't hear from the clinic, please call the office) Continue physical therapy if symptoms do not improve Hold metformin for now due to recent contrast for the CT scan Ok to resume metformin on Friday Fall precaution Monitor for any sign of urinary symptoms. Please hold tramadol if you become drowsy and lethargy Please do no drive or operate any machine after taking tramadol Prescriptions: New tramadol 50 mg tablet 50 mg PO DAILY PRN (Reason: pain) Qty: 10 RF: 0 Continued multivitamin Tablet 1 tab PO QAM RF: 0 metoprolol succinate 25 mg tablet extended release 24 hr 25 mg PO HS RF: 0 metformin 500 mg tablet extended release 24 hr 1,000 mg PO BIDM RF: 0 colestipol 1 gram tablet 2 g PO AMPM RF: 0 cholecalciferol (vitamin D3) [Vitamin D3] 5,000 unit Tablet 5,000 unit PO QAM RF: 0 hydroxyzine pamoate 25 mg capsule 25 - 50 mg PO DAILY PRN (Reason: Anxiety) RF: 0 fluoxetine [Prozac] 40 mg Capsule 80 mg PO QAM RF: 0 losartan 25 mg Tablet 25 mg PO HS RF: 0 Canyon-3 Fish Oil 300-1,000 mg Capsule 1 cap PO BID RF: 0 No Action ibuprofen 200 mg Tablet 600 mg PO UD RF: 0 prednisone 20 mg tablet 60 mg PO DAILY 4 Days Qty: 12 RF: 0 tramadol 50 mg tablet 50 mg PO Q6H PRN (Reason: pain) Qty: 10 RF: 0 lidocaine [Lidoderm] 5 % adhesive patch,medicated 1 patch TOP DAILY Qty: 10 RF: 0 Stand-Alone Forms: [facility] Discharge Orders: Discharge Order (Routine); Ordered 08/14/18 Ordered By: Gabby Crawford Admission Data Admit Date/Time: 08/13/18 15:59 Attending Provider: Gabby Crawford Admit Provider: Grant Montoya Primary Care Provider: Danisha Hirsch Other Providers: Grant Montoya Service: Surgical Services Other Interventions: Discharge Summary Assessment (RN) Last Done: 08/14/18 18:18 DC Date/Time DO NOT enter until pt leaves facility: 08/14/18 19:04
== END 2018-08-14 19:04 | disposition home or self-care (01) | DRG 552 ==
LOC: ED 08:43 → 3W 15:59

== ENCOUNTER 2019-12-06 06:38 | Inpatient (IN) ==
--- NOTE | 2019-12-02 09:51 | Anesthesiology Consultation ---
Date of Service December 02, 2019 Assessment & Plan (1) Encounter for pre-operative examination: Case was originally scheduled for but was R/S due to COVID19 pandemic. Patient was seen in PAT by Nivia Mix on 08/16/19. Patient with severe concentric LVH on 2018 echo done for pre-op cardiac eval prior to lithotripsy. Lithotripsy performed at [facility], reportedly with no issues per patient. COVID Status: As of 11/29 nurse assessment, patient denies travel to endemic area , known exposure/sick contacts, or symptoms of COVID19. Preoperative COVID19 testing completed on 11/30, results pending. Chart Review Chart Review: Acceptable Risk for Surgery (pending updated labs AM DOS) and Patient NOT seen in Pre Admission Testing History Surgery Operation Date: 12/06/19 07:30 Proposed Procedures p Left Total Shoulder Arthroplasty - Yovany Alexander DO Height/Weight Height: 5 ft 8 in Weight: 72.575 kg Allergies Allergy/AdvReac Type Severity Reaction Status Date / Time No Known Allergies Allergy Verified 08/09/19 15:59 Medications Home Medications Medication Instructions Recorded Confirmed Last Taken colestipol 3 g PO BID 08/13/18 11/30/19 08/14/18 fluoxetine [Prozac] 80 mg PO QAM 08/13/18 11/30/19 08/14/18 losartan 25 mg PO HS 08/13/18 11/30/19 08/14/18 metformin 1,000 mg PO BIDM 08/13/18 11/30/19 Unknown metoprolol succinate 25 mg PO HS 08/13/18 11/30/19 08/14/18 multivitamin 1 tab PO QAM 08/13/18 11/30/19 08/14/18 ibuprofen 200 - 600 mg PO DAILY PRN 08/16/18 11/30/19 08/16/18 09:00 Past Medical History Medical History Anxiety Diabetes mellitus, type 2 NIDDM DJD (degenerative joint disease) Fatty liver History of bladder carcinoma History of kidney stones HLD (hyperlipidemia) HTN (hypertension) Hypothyroidism hx --- no medications, no problems currently LBBB (left bundle branch block) chronic dating back to at least 11/2018 ECHO Osteoarthritis Past Family History Family History Father , age 57 Heart disease Stroke Mother Heart disease Sister Hypothyroidism Dyslipidemia Past Surgical History Surgical History History of cataract extraction bilateral History of cholecystectomy History of colonoscopy History of esophagogastroduodenoscopy (EGD) History of total abdominal hysterectomy and bilateral salpingo-oophorectomy History of transurethral destruction of bladder lesion Social History Smoking Status: Never smoker Do You Dip or Chew Tobacco: No Hx Alcohol Use: No Hx Substance Use: No substance use type: does not use Testing Electrocardiogram Date: 08/16/19 Findings: + NSR @ (69bpm with occ PVCs) and + LBBB Left axis deviation. LBBB. Chest X-Ray Date: 08/16/19 Findings: + NAD Echocardiogram Date: 12/10/18 EF: 55-59% LV cavity size is normal. Severe concentric LVH. Septal wall motion is abnormal consistent with LBBB. Regional LV wall motion is otherwise normal. Grade I diastolic dysfunction. LA is mildly enlarged. Mild secondary mitral regurgitation.
--- NOTE | 2019-12-02 15:55 | History & Physical Report ---
Date of Service December 02, 2019 Assessment & Plan (1) Osteoarthritis, shoulder: We will proceed with a left total shoulder arthroplasty. Postoperatively she will be placed in a sling and kept overnight in the hospital for postoperative medical management. She plans to use [facility] outpatient physical therapy upon discharge. Present on Admission?: Yes History of Present Illness Chief Complaint: Primary osteoarthritis of the left shoulder Primary Care Provider: Danisha Hirsch MD Evelyn is a pleasant 74-year-old female whose been dealing with chronic increasing left shoulder pain. X-rays and clinical examination have been diagnostic for primary osteoarthritis of the left shoulder. After failing conservative treatment, she has elected proceed with a left total shoulder arthroplasty. Allergies Allergy/AdvReac Type Severity Reaction Status Date / Time No Known Allergies Allergy Verified 08/09/19 15:59 Home Medications Home Medications Medication Instructions Recorded Confirmed Type colestipol 3 g PO BID 08/13/18 11/30/19 History fluoxetine [Prozac] 80 mg PO QAM 08/13/18 11/30/19 History losartan 25 mg PO HS 08/13/18 11/30/19 History metformin 1,000 mg PO BIDM 08/13/18 11/30/19 History metoprolol succinate 25 mg PO HS 08/13/18 11/30/19 History multivitamin 1 tab PO QAM 08/13/18 11/30/19 History ibuprofen 200 - 600 mg PO DAILY PRN 08/16/18 11/30/19 History Past Med/Surg History Medical History Anxiety Diabetes mellitus, type 2 NIDDM DJD (degenerative joint disease) Fatty liver History of bladder carcinoma History of kidney stones HLD (hyperlipidemia) HTN (hypertension) Hypothyroidism hx --- no medications, no problems currently LBBB (left bundle branch block) chronic dating back to at least 11/2018 ECHO Osteoarthritis Surgical History History of cataract extraction bilateral History of cholecystectomy History of colonoscopy History of esophagogastroduodenoscopy (EGD) History of total abdominal hysterectomy and bilateral salpingo-oophorectomy History of transurethral destruction of bladder lesion Family History Father , age 57 Heart disease Stroke Mother Heart disease Sister Hypothyroidism Dyslipidemia Social History Preferred Language: Setswana Communication Ability: Effective Rn Otolaryngology Required: No Beliefs That Will Affect Care: None marital status: Current Living Situation: Spouse Other Information That Helps Us Care for You: No Feels Safe at Home: Yes Safety Concerns: Feels Safe At This Time Smoking Status: Never smoker Do You Dip or Chew Tobacco: No ; Second Hand Exposure: No ; Tobacco Cessation Education Requested by Patient: No Hx Alcohol Use: No Hx Substance Use: No Review of Systems Review of Systems: All systems reviewed & are unremarkable except as noted in HPI & below Physical Exam Constitutional: WD/WN, vitals as above Eyes: PERRL, conjunctivae normal, anicteric sclerae ENMT: external ear and nose normal, oropharynx normal Neck: trachea midline, no thyromegaly Respiratory: normal respiratory effort Cardiovascular: RRR, no murmur, no edema Gastrointestinal (Abdomen): normal bowel sounds, soft, nontender, no hepatosplenomegaly Musculoskeletal: Physical examination of the left shoulder reveals decreased range of motion and crepitis throughout. There is good strength with full can testing and external rotation. There is tenderness palpation along the anterior glenohumeral joint line. The right upper extremity is neurovascularly intact. Psychiatric: A+Ox3, euthymic affect Results & Data Results & Data ([facility]) Diagnostic Findings Radiographs of the left shoulder show osteoarthritis of the glenohumeral joint. There is joint space narrowing, osteophyte formation, and [id number] articulation. PG Care Time/CCT Total # of Minutes Spent Total Time Spent with Patient: Total time spent is greater than 50% in coordination of care (as documented) at patient's floor/unit and/or counseling patient: Coding Level of Care Code 54654 Initial Inpt Care Lvl 3 Diagnoses Osteoarthritis, shoulder M19.019
[~2019-12-06 06:38] MED LIST changes: +ACETAMINOPHEN 500 MG TAB PO SCH; -ASPI-232 PO; +CEFAZOLIN 2000MG 2,000 MG/15 ML SYR IV SCH; -CHOL1TAB42 PO; -COLE1TAB PO; +CeleBREX 200 MG CAP PO SCH; +FAMOTIDINE 20 MG TAB PO SCH; +GABAPENTIN 300 MG CAP PO SCH; -GLC500 PO; -GLYCDRO6 OPB; -LEVO50TA PO; +LR 15ML/HR IV SCH; +LR 60ML/HR IV SCH; -METO25TA3 PO; -MULT-506 PO; +TRANEXAMIC ACID 1,000 MG **IV Intra-op IV SCH; +TRANEXAMIC ACID 1,000 MG **IV Pre-op IV SCH; -XNX25X PO
--- NOTE | 2019-12-06 06:53 | History & Physical Bridge Note ---
Date of Service December 06, 2019 History & Physical Bridge Note I have examined the patient, reviewed the History & Physical and in the interval since the performance of the History & Physical I have noted the following changes of clinical significance: no changes noted
[2019-12-06 07:19] LABS: Hematocrit (blood only) 41.3 % (37-47); Hemoglobin 14.2 g/dL (12.0-16.0); Mean Corpuscular Hemoglobin 29.2 pg (25-34); Mean Corpuscular Volume 84.8 fL (80-100); Mean Platelet Volume 10.3 fL (7.4-10.4); Platelet Count 175 K/uL (130-400); RDW Coefficient of Variation 13.8 % (11.5-14.5); RDW Standard Deviation 42.7 fL (36.4-46.3); Red Blood Count 4.87 M/uL (4.2-5.4); White Blood Count 6.39 K/uL (4.8-10.8)
[2019-12-06] MEDS ORDERED: BUPIVACAINE 0.5 % 5 MG/1 ML PF 10ML VIAL ONE (07:20)
[2019-12-06 07:31] LABS: Partial Thromboplastin Ratio 0.9; Partial Thromboplastin Time 25.4 Seconds (21.0-31.0); Prothrombin Time 10.5 Seconds (9.0-12.0)
[2019-12-06 07:35] LABS: BUN Creatinine Ratio 17.8 (10-20); Calcium 9.5 mg/dl (8.5-10.1); Creatinine Clr Calc Pharmacy 60.4 ml/min; Est GFR (Non-African American) 63.8; Potassium 4.1 mmol/L (3.5-5.1)
[2019-12-06 07:43] LABS: Mean Corpuscular Hgb Conc 34.4 g/dL (32-36)
[2019-12-06] MEDS ORDERED: MIDAZOLAM HCL 1 MG/ML 2ML VIAL ONE (08:01)
[2019-12-06] MEDS ORDERED: fentaNYL citrate 100 MCG/2 ML VIAL ONE (08:02)
[2019-12-06] MEDS ORDERED: ePHEDrine sulfate 50 MG/ML AMP IV PRN (08:35)
[2019-12-06] MEDS ORDERED: HYDROmorphone INJ 2 MG/ML SYR/VIAL IV PRN (08:35)
[2019-12-06] MEDS ORDERED: ONDANSETRON INJ 2 MG/ML 2 ML VIAL IV PRN ×2 (08:35→12:52)
[2019-12-06] MEDS ORDERED: fentaNYL citrate 100 MCG/2 ML VIAL IV PRN (08:35)
[2019-12-06] MEDS ORDERED: ATROPINE SULFATE 0.1 MG/ML 10ML SYR IV PRN (08:35)
[2019-12-06] MEDS ORDERED: PROPOFOL IV EMULSION 10 MG/ML 20 ML VIAL IV ONE (10:10)
[2019-12-06] MEDS ORDERED: NEOSTIGMINE METHYLSULFATE 5 MG/5 ML SYR ONE (10:10)
[2019-12-06] MEDS ORDERED: LIDOCAINE HCL 2% 2 ML VIAL/AMP(20MG/ML) INFIL ONE (10:10)
[2019-12-06] MEDS ORDERED: DEXAMETHASONE SOD INJ 4 MG/ML VIAL ONE (10:10)
[2019-12-06] MEDS ORDERED: ROCURONIUM BROMIDE 10 MG/ML 5 ML VIAL IV ONE (10:10)
[2019-12-06] MEDS ORDERED: ONDANSETRON INJ 2 MG/ML 2 ML VIAL ONE (10:10)
[2019-12-06] MEDS ORDERED: GLYCOPYRROLATE 0.2 MG/ML VIAL ONE (10:10)
--- NOTE | 2019-12-06 10:42 | Operative Report ---
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 X-rays and clinical examination have been diagnostic for advanced osteoarthritis of the left shoulder. After failing conservative treatment, she elected proceed with a left total shoulder arthroplasty. Description of Procedure A CPT code modifier 59: The long head of the biceps tendon was enlarged and inflamed consistent with tendinopathy. A tenodesis was opted. This was a separate and distinct portion of the procedure. For these reasons, a CPT code modifier 59 will be added to this case. Implants used: I used a [employer] Comprehensive total shoulder arthroplasty system with a size 15 press fit micro-humeral stem, a size 46 x 24 eccentric humeral head, and a small size glenoid with a Regenerex peg. The glenoid was cemented in place with Palacos G cement. Evelyn arrived at [facility] for the above procedure. She was seen in the preoperative holding area and the operative extremity was identified and signed. She was given a preoperative antibiotic, TXA, and an interscalene nerve block. She was taken back to the operating room, laid on table in supine position, and put under general anesthesia. She was then put into the beachchair position. The shoulder was then prepped and draped in sterile fashion. A timeout was done and the patient and the operative extremity was properly identified. A deltopectoral approach was used. Dissection was taken down through the fascia and the deltoid was retracted laterally and the conjoined tendon was retracted medially. The anterior shoulder was exposed. The biceps groove was opened up and the biceps tendon was examined extensively. The biceps tendon demonstrated enlargement and inflammatory changes consistent with longstanding inflammation in the context of osteoarthritis. The long head of the biceps tendon was then tenodesed to the upper border of the pectoralis major. This was a separate and distinct portion of the procedure. The subscapularis was then released off the lesser tuberosity with a centimeter of cuff tissue remaining. The inferior capsule was released and the humeral head was dislocated. The rotator cuff was inspected and intact. A canal finding reamer was sent down the center of the humeral canal. Sequential reaming up to a size 15 reamer was done. Offset reamer a proximal humeral resection guide was placed. The proximal humerus was resected at 135 of inclination and 30 of retroversion. Inferior osteophytes were then removed and the glenoid was exposed. Time was spent doing an appropriate labral release. The glenoid measured to be a size small. A [employer] signature guide was then attached onto the anterior rim of the glenoid. A 3.2 mm Steinmann pin was then placed in the total shoulder arthroplasty hole. The glenoid was then reamed with a propeller reamer. The central post cutter was then used to prepare for the central boss. The cannulated peripheral peg drill guide was then placed and 3 peg holes were drilled. The final size small glenoid was then cemented in place with Palacos G cement. Surrounding soft tissues were then injected with 100 cc of an orthopedic pain control cocktail. Once cement had dried the proximal humerus was once again exposed. Sequential broaching of the humerus up to a size 15 broach was done. Off that broach a size 46 x 24 eccentric humeral head was trialed. The shoulder was then reduced, brought through a full range of motion, and felt to be stable. The shoulder was then dislocated and the broach was removed. The final size 15 micro humeral stem implant was then impacted into place. A size 46 x 24 eccentric humeral head was then impacted onto the humeral stem. The shoulder was then reduced and once again brought through a full range of motion and felt to be stable. The subscapularis was then tenodesed back to the lesser tuberosity with transosseous FiberWire sutures and side to side sutures with the arm in 45 of external rotation. 2 sutures were placed in the lateral rotator interval. A dilute betadyne lavage was then done for 3 minutes. The joint was then irrigated with normal saline solution. Hemostasis was obtained. The interval was closed with 2-0 Vicryl suture. The skin was closed with 2-0 Vicryl and rudolph. A soft dressing was placed and the arm was rested in a regular arm sling. She was then extubated and transferred to a hospital bed. She was taken to the postanesthesia care unit in stable condition. She tolerated the procedure well. Yovany Garrison PA-C, was present for the entire procedure. He was critical for patient positioning, prepping, draping, retraction exposure, wound closure and application of sterile dressing. I attest to the content of the Intraoperative Record and any orders documented therein. Any exceptions are noted below.
--- NOTE | 2019-12-06 11:23 | XRay Report ---
XR shoulder LT min 2V routine HISTORY: 74 years-old Female Post shoulder surgery left shoulder total joint arthroplasty COMPARISON: CT left shoulder 08/16/2019 TECHNIQUE: 2 views of the left shoulder. FINDINGS: Left shoulder arthroplasty demonstrates satisfactory alignment. Skin rudolph are noted along with exp ected postsurgical soft tissue swelling and deep tissue air. No acute fracture or opaque foreign body . The imaged left lung appears generally clear. IMPRESSION: Left shoulder total joint arthroplasty with expected postoperative findings. ACT 112: Negative or not required by law. The above report was generated using voice recognition software. It may contain grammatical, syntax o r spelling errors. Electronically signed by: Oumar Vaughn M.D. 12/06/2019 11:22 AM
--- NOTE | 2019-12-06 11:46 | Anesthesiology Progress Note ---
Date of Service December 06, 2019 Anesthesia Post Procedure Vital Signs Vital Signs: Temp Pulse Pulse Resp BP Pulse Ox 12/06/19 11:40 62 19 140/67 100 12/06/19 11:30 36.3 C L 62 19 146/63 H 100 12/06/19 11:20 66 17 149/72 H 99 12/06/19 11:10 69 16 167/76 H 95 12/06/19 11:00 37.0 C 83 18 191/84 H 93 12/06/19 08:57 67 16 174/79 H 99 12/06/19 07:50 60 20 136/69 95 12/06/19 07:16 37 C 72 20 154/84 H 96 Transfer of Care Handoff Completed per policy Notes Mental Status: alert / awake / arousable and participated in evaluation Patient Amnestic to Procedure: Yes Nausea / Vomiting: adequately controlled Pain: adequately controlled Airway Patency, RR, SpO2: stable & adequate BP & HR: stable & adequate Hydration State: stable & adequate Anesthetic Complications: no major complications apparent and Pt Satisfied with anesthetic care
[2019-12-06] MEDS ORDERED: MAGNESIUM HYDROXIDE SUSP 30 ML UDC PO PRN (12:52)
[2019-12-06] MEDS ORDERED: OXYCODONE HCL IR 5 MG TAB (IMMEDIATE RELEASE) PO PRN (12:52)
[2019-12-06] MEDS ORDERED: bisacodyL 10 MG SUPP PR PRN (12:52)
[2019-12-06] MEDS ORDERED: METOCLOPRAMIDE HCL INJ 5 MG/ML 2 ML VIAL IV PRN (12:52)
[2019-12-06] MEDS ORDERED: HYDROmorphone INJ 0.5 MG/0.5 ML SYR IV PRN (12:52)
[2019-12-06] MEDS ORDERED: NALOXONE HCL 0.4 MG/1 ML VIAL/CARP IV PRN (12:52)
[2019-12-06] MEDS: SODIUM CHLORIDE 0.9% 1000ML 1,000 ML IV SCH (13:22)
[2019-12-06] MEDS: ACETAMINOPHEN 500 MG TAB PO SCH ×2 (13:33→21:43)
[2019-12-06] MEDS: KETOROLAC TROMETHAMINE 15 MG/ML VIAL IV SCH ×2 (13:33→18:31)
[2019-12-06] MEDS ORDERED: PHARMACY GLYCEMIC MGMT CONSULT PRN (13:39)
--- NOTE | 2019-12-06 13:53 | Pharmacy Report ---
Pharmacy Glycemic Short Note 2 - Date of Service December 06, 2019 - Glycemic Short BSG Results (Last 24 hours): 12/06/19 12/06/19 12/06/19 07:10 07:42 11:02 Glucose 126 H POC Glucose 126 H 162 H 12/06/19 12:08 Glucose POC Glucose 150 H OUTPATIENT ANTIDIABETIC REGIMEN: * Metformin 1,000 BIDM * A1c 7/7 AM ASSESSMENT: * 76 yo female admitted following left Total Shoulder Arthroplasty * Post-surgery BSG 150, patient received 4 mg of dexamethasone IV + topical application with orthomix, therefore will give 1x NPH dose 0.2 units/kg (reduced from typical 0.4 units/kg as patient not on insulin at home) * Will begin novolog with weight based stress of 2, will loosen/tighten as needed. PLAN FOR INPATIENT GLYCEMIC CONTROL: * Hold outpatient oral diabetes medications * Basal insulin * NPH 15 units x 1 * Bolus insulin * NovoLog per scale ACHS or Q6hrs while NPO * Goal Range: Low 120 mg/dL - High 160 mg/dL * Correction Factor: 30 mg/dL/unit * Nutritional / Prandial insulin per carb ratio of 1 unit per 10 grams CHO consumed
[2019-12-06] MEDS ORDERED: NovoLIN-N (NPH) PER UNIT CHARGE SQ ONE (14:00)
[2019-12-06] MEDS: INSULIN ASPART 100 UNITS/ML 3 ML PEN SC SCH ×3 (14:20→21:29)
[2019-12-06] MEDS ORDERED: Nursing to Pharmacy Communication SCH (15:00)
[2019-12-06] MEDS ORDERED: COUGH DROP (SUGAR FREE) LOZ 24 LOZ/1 BOX BUCCAL PRN (15:07)
[2019-12-06] MEDS: COLESTIPOL HCL 1 GM TAB PO SCH (18:32)
[2019-12-06] MEDS: CEFAZOLIN 2000MG 2,000 MG/15 ML SYR IV SCH (18:32)
[2019-12-06] MEDS: DOCUSATE SODIUM 100 MG CAP PO SCH (20:37)
[2019-12-06] MEDS ORDERED: SENNA 8.6 MG TAB PO SCH (21:00)
[2019-12-06] MEDS ORDERED: LOSARTAN POTASSIUM 25 MG TAB PO SCH (21:00)
[2019-12-06] MEDS ORDERED: METOPROLOL SUCC 25MG EXT REL TAB PO SCH (21:00)
[2019-12-07] MEDS: KETOROLAC TROMETHAMINE 15 MG/ML VIAL IV SCH ×2 (00:01→05:22)
[2019-12-07] MEDS: SODIUM CHLORIDE 0.9% 1000ML 1,000 ML IV SCH (00:02)
[2019-12-07] MEDS: CEFAZOLIN 2000MG 2,000 MG/15 ML SYR IV SCH (02:39)
[2019-12-07] MEDS: ACETAMINOPHEN 500 MG TAB PO SCH (05:22)
[2019-12-07] MEDS: COLESTIPOL HCL 1 GM TAB PO SCH (05:27)
[2019-12-07 05:41] LABS: Basophils # (auto) 0.01 K/uL (0-0.2); Basophils % (auto) 0.1 %; Eosinophils # (auto) 0.07 K/uL (0-0.5); Eosinophils % (auto) 0.7 %; Hematocrit (blood only) 33.4 % (37-47); Immature Granulocytes # (auto) 0.02 K/uL (0.00-0.02); Immature Granulocytes % (auto) 0.2 %; Lymphocytes # (auto) 1.34 K/uL (1.2-3.4); Lymphocytes % (auto) 14.3 %; Mean Corpuscular Hemoglobin 28.4 pg (25-34); Mean Corpuscular Hgb Conc 32.9 g/dL (32-36); Mean Corpuscular Volume 86.1 fL (80-100); Mean Platelet Volume 10.4 fL (7.4-10.4); Monocytes # (auto) 0.74 K/uL (0.11-0.59); Monocytes % (auto) 7.9 %; Neutrophils % (auto) 76.8 %; Platelet Count 154 K/uL (130-400); RDW Coefficient of Variation 13.7 % (11.5-14.5); RDW Standard Deviation 43.1 fL (36.4-46.3); Red Blood Count 3.88 M/uL (4.2-5.4); White Blood Count 9.38 K/uL (4.8-10.8)
[2019-12-07] MEDS ORDERED: ROPIVACAINE 0.5% HCL/PF 150 MG, BUPIVACAINE 0.5% MPF 30 ML, EPINEPHrine 0.15 MG, Ketoro... INFIL SCH (06:00)
[2019-12-07 06:01] LABS: BUN Creatinine Ratio 16.5 (10-20); Calcium 8.7 mg/dl (8.5-10.1); Creatinine Clr Calc Pharmacy 59.1 ml/min; Est GFR (Non-African American) 62.2; Potassium 3.7 mmol/L (3.5-5.1)
--- NOTE | 2019-12-07 06:40 | Orthopedic Progress Note ---
Date of Service December 07, 2019 Assessment & Plan (1) History of left shoulder replacement: Overall she is doing fairly well. She understands that the nerve block will wear off later today. She will be seen by physical therapy this morning for ambulation and range of motion exercises. She can be discharged home later today. She will follow-up with orthopedics in 2 weeks. Present on Admission?: Yes Subjective Evelyn was seen and examined at bedside this morning. Overall she is doing fairly well. She is not having too much pain in the left shoulder but the numbness is bothering her. She did have trouble sleeping last night. She has no other complaints. Physical Exam Musculoskeletal: On physical examination of the left shoulder, the Silverlon dressing is clean and dry. She is wearing her sling as instructed. She still has some numbness in her forearm and her hand because of the block. Results & Data ([facility]) Vital Signs (Past 12 Hours) Vital Signs Temp Pulse Resp BP Pulse Ox 12/07/19 05:22 60 16 139/80 12/07/19 03:53 64 16 171/75 H 12/07/19 02:35 36.8 C 65 16 180/78 H 95 12/06/19 23:15 36.9 C 72 16 186/91 H 94 12/06/19 19:12 36.4 C L 75 16 152/73 H 93 Laboratory Results H & H 12/06/19 12/07/19 Range/Units 07:10 04:58 Hgb 14.2 11.0 L D (12.0-16.0) g/dL Hct 41.3 33.4 L (37-47) % Coagulation 12/06/19 Range/Units 07:10 INR 1.0 (0.9-1.1) Diagnostic Findings Postoperative x-rays of the left shoulder show the prosthesis to be in anatomic alignment without any evidence of fracture, dislocation, or loosening. PG Care Time/CCT Total # of Minutes Spent Total Time Spent with Patient: Total time spent is greater than 50% in coordination of care (as documented) at patient's floor/unit and/or counseling patient: Coding Level of Care Code None Diagnoses History of left shoulder replacement Z96.612
--- NOTE | 2019-12-07 06:41 | Discharge Summary ---
Date of Service December 07, 2019 Admission HPI Per Admitting Provider Evelyn is a pleasant 74-year-old female whose been dealing with chronic increasing left shoulder pain. X-rays and clinical examination have been diagnostic for primary osteoarthritis of the left shoulder. After failing conservative treatment, she has elected proceed with a left total shoulder arthroplasty. Principal Diagnosis Left shoulder replacement Discharge Data Allergies Allergy/AdvReac Type Severity Reaction Status Date / Time No Known Allergies Allergy Verified 12/06/19 07:14 Consultations 12/06/19 12:52 Consult Case Management - Discharge Planning Routine Procedures Performed Operation Date: 12/06/19 09:05 Actual Procedures p Left Total Shoulder Arthroplasty--Cemented(Left) - Yovany Alexander DO Ordered Studies 12/06/19 05:00 US - OR guided needle placemen Routine Hospital Course (1) History of left shoulder replacement: On December 06, 2019 Evelyn arrived at [facility] and underwent a left total shoulder arthroplasty without complication. She had a general anesthetic and a left interscalene nerve block. Postoperatively she was placed in a sling and transferred to the general orthopedic floors. Her hospital course was uneventful. On postop day #1 her H&H was stable and her pain was well controlled. She was able to participate well with physical therapy doing ambulation and range of motion exercises. She was then discharged home. She will follow-up with orthopedics in 2 weeks. Total Time Total Time Spent Total Time Spent (In Minutes): 20 Discharge Plan Discharge Items Patient Disposition: Home - Home Health Services Reason For Visit: Left Shoulder Degenerative Joint Disease Discharge Diagnosis: Left total shoulder arthroplasty Activity: As commented below Non-emergency contact: Surgeon Call non-emergency contact if: your wound has increased redness and your wound has increased drainage Follow-up/Referrals: Danisha Hirsch MD [Primary Care Provider] - Diet: Carb Consistent or DM2 Addtl Attending Provider Instructions: Activity and Therapy Recommendations: * If you are using [facility] then therapy will be provided at your home until they feel you have accomplished all of your goals. * If you are using [facility] then Physical Therapy will be provided until they feel you are ready to start Outpatient Physical Therapy. * If you are not using home therapy then Outpatient Physical Therapy should start about 3-5 days from your day of surgery. Therapy will last about 8-12 weeks * Wear your sling for 3 weeks, unless otherwise instructed. You may remove your sling to shower and to dress, but otherwise, you should be in your sling at all times, including while sleeping * The shoulder replacement is very stable and you can use your hand while in the sling * You were shown a series of exercises in the hospital. Do these exercises daily including the exercises you were shown in physical therapy. Medications: * Narcotic You will likely be sent home from the hospital with a prescription for the narcotic pain medication that worked best throughout your stay. * Other medications may be prescribed for specific circumstances. If you have any questions, please call the office at . * Resume previous home medications unless otherwise instructed Dressing Care: Leave the Silverlon dressing on for 7 days. After 7 days you may remove the dressing If the incision is not draining then you may leave the rudolph open to air. If there is a little bit of drainage or if the rudolph are getting stuck on your clothing then cover the incision with a dry dressing. The rudolph will be removed at your 2 week follow-up appointment. Showering: You may shower with the Silverlon dressing in place. Do not scrub or soak the dressing. After the dressing is removed you may shower with the rudolph exposed. Let the soapy shower water run over the rudolph and pat them dry. Do not scrub or soak the incision. Things To Watch For: * Drainage from the incision site that occurs more than one week after your surgery. * Increased redness at the incision site. * Fever above 102 degrees Fahrenheit. * Unusual chest pain or shortness of breath. * Call [facility] at with any of the above problems Follow-Up Visit: Follow-up with Dr. Alexander's PA (Yovany Garrison) 2-3 weeks after your day of surgery. He will remove your rudolph and answer any questions. If you have any additional questions or concerns, Dr Alexander is usually in the office at the same time and will be available An appointment was probably scheduled when you signed-up for surgery in the office. If you have any questions call More detailed instructions as well as Frequently Asked Questions were provided in a folder by our office when you signed-up for surgery. Please review these instructions when you get home. If you have any further questions or concerns, please feel free to call the office at [phone] Pending Studies at Discharge: No Stand-Alone Forms: My [facility], Smoking Cessation Medications and DC Order Prescriptions: New oxycodone 5 mg Tablet 5 mg PO Q4H PRN (Reason: pain) Qty: 30 RF: 0 Continued multivitamin Tablet 1 tab PO QAM RF: 0 metoprolol succinate 25 mg tablet extended release 24 hr 25 mg PO HS RF: 0 metformin 500 mg tablet extended release 24 hr 1,000 mg PO BIDM RF: 0 colestipol 1 gram tablet 3 g PO BID RF: 0 fluoxetine [Prozac] 40 mg Capsule 80 mg PO QAM RF: 0 losartan 25 mg Tablet 25 mg PO HS RF: 0 ibuprofen 200 mg Tablet 200 - 600 mg PO DAILY PRN (Reason: Pain) RF: 0 Discharge Orders: Discharge Order (Routine); Ordered 12/07/19 Ordered By: Yovany Alexander Admission Data Admit Date/Time: 12/06/19 10:59 Attending Provider: Yovany Alexander Admit Provider: Yovany Alexander Primary Care Provider: Danisha Hirsch Level of Care Code D/C Day Management <30 mins Diagnoses History of left shoulder replacement Z96.612
[2019-12-07 07:02] LABS: Estimated Average Glucose 108 mg/dl; Hemoglobin A1C 5.4 % (4.5-5.6)
[2019-12-07] MEDS: DOCUSATE SODIUM 100 MG CAP PO SCH (08:28)
[2019-12-07] MEDS: INSULIN ASPART 100 UNITS/ML 3 ML PEN SC SCH (08:30)
[2019-12-07] MEDS ORDERED: MULTIVITAMIN TAB PO SCH (09:00)
[2019-12-07] MEDS ORDERED: FLUOXETINE HCL 20 MG CAP PO SCH (09:00)
== END 2019-12-07 11:13 | disposition home or self-care (01) | DRG 483 ==
LOC: ASU 06:38 → 3E 10:59